=== PATIENT | male | born 1960 | race Caucasian/White ===

== ENCOUNTER → 2024-04-16 12:12 | Outpatient (BNVA) | payer MEDICARE, SELFPAY | PROVIDERS: Visit Provider Podiatrist Foot & Ankle Surgery | DX: M79.672 Pain in left foot (principal); M19.072 Primary osteoarthritis, left ankle and foot | CPT/HCPCS: 73630; 99204 ==

== ENCOUNTER 2024-05-12 10:05 | Day surgery (SDC) | payer MEDICARE, SELFPAY ==
--- OUTSIDE RECORDS SUMMARY | 2024-05-06 13:05 | XMS_ITS | Continuity of Care Document ---
Author Name Unknown Organization [facility] Address [facility] [address] [place] [address]- Care Team Providers Care Application Technician Name Role Phone Mitra Carroll Primary Care Physician Encounter 03/30/24 - 04/01/24 [facility] [address] [place] [address]- Encounter Diagnosis Degenerative arthritis of left foot(Discharge Diagnosis) - 03/30/24 Attending Physician: Mitra Hardy Allergies, Adverse Reactions, Alerts No Known Medication Allergies Assessment and Plan Extracted from: Title:Left foot pain Author:Mitra Hardy Date:03/30/24 Impression and Plan Diagnosis Degenerative arthritis of left foot ([id number] M19.072). Plan: referral we will call and tell them what he is being scheduled for keep ortho appt. Patient Instructions: Counseled: Patient, Regarding diagnosis, Regarding treatment, Regarding medications, Verbalized understanding. Orders Orders (Selected) Outpatient Orders Order [id number] office o/p est low meets or exceeds 20min (Charge): Quantity: 1, Degenerative arthritis of left foot. Medications cyclobenzaprine 10 mg oral tablet = 1 tab(s) ( 10 mg ), Oral, tid, PRN: for spasm, # 30 tab(s), 3 Refill(s), Type: Maintenance, Pharmacy: [facility] [id number], 1 tab(s) Oral tid,PRN:for spasm, 64.5, in, 01/21/24 10:14:00 CDT, Height Measured, 145.5, lb, 01/21/24 10:14:00 CDT, Weight Measured Start Date: 01/21/24 Status: Ordered ibuprofen 800 mg oral tablet = 1 tab(s) ( 800 mg ), Oral, tid, # 90 tab(s), 3 Refill(s), Type: Maintenance, Pharmacy: [facility], 1 tab(s) Oral tid, 64.5, in, 01/21/24 10:14:00 CDT, Height Measured, 145.5, lb, 01/21/24 10:14:00 CDT, Weight Measured Start Date: 01/21/24 Status: Ordered simvastatin 20 mg oral tablet = 1 tab(s), Oral, qpm, # 90 tab(s), 0 Refill(s), Type: Maintenance, Pharmacy: [facility], TAKE 1 TABLET BY MOUTH EVERY EVENING, 64.5, in, 01/21/24 10:14:00 CDT, Height Measured, 145.5, lb, 01/21/24 10:14:00 CDT, Weight Measured Start Date: 03/02/24 Status: Ordered tamsulosin 0.4 mg oral capsule = 1 cap(s) ( 0.4 mg ), Oral, daily, 0 Refill(s), Type: Maintenance Start Date: 11/20/23 Status: Ordered Tylenol with Codeine #3 oral tablet 1 tab(s), Oral, q6 hrs, PRN: for pain, # 60 tab(s), 0 Refill(s), Type: Maintenance, Pharmacy: [facility], 1 tab(s) Oral q6 hrs,PRN:for pain, 64.5, in, 01/21/24 10:14:00 CDT, Height Measured, 145.5, lb, 01/21/24 10:14:00 CDT, Weight Measured Start Date: 03/11/24 Status: Ordered Problem List Diagnosis Diagnosis Type Effective Dates Health Status Clinical Service Informant Degenerative arthritis of left foot Discharge Diagnosis 03/30/24 Non-Specified Vital Signs Most recent to oldest [Reference Range]: 1 Height Measured 64.5 in (03/30/24 9:08 AM) Weight Measured 141 lb (03/30/24 9:08 AM) Body Mass Index [18.5-25 kg/m2] 23.83 kg /m2 (03/30/24 9:08 AM) BSA 1.7 m2 (03/30/24 9:08 AM) Temperature Temporal [97.3-100 DegF] 98 DegF (03/30/24 9:08 AM) Blood Pressure [90-120/60-80 mmHg] 138/8 0mmHg *HI* (03/30/24 9:08 AM) Mean Arterial Pressure 99 mmHg (03/30/24 9:08 AM) Peripheral Pulse Rate [60-100 bpm] 49 bp m *<LLOW* (03/30/24 9:08 AM) SpO2 98 % (03/30/24 9:08 AM) Social History Social History Type Response Smoking Status Never (less than 100 in lifetime) entered on: 03/30/24 Sex Note * Danny Ramirez MD: SIGN Danny Ramirez MD: SIGN, SIGN, VERIFY Event Display: Family Planning Note Authored Date: [id number] Patient: Danny Alvarez Age: 63 years Sex: Male : 1960 Associated Diagnoses: Degenerative arthritis of left foot Author: Mitra Hardy Visit Information Date of Service: 03/30/2024 09:00 am Performing Location: [facility] Primary Care Provider (PCP): Mitra Hardy NPI# [id number] Referring Provider: No referring provider recorded for selected visit. Chief Complaint 03/30/2024 9:08 AM CDT Toe/foot issues. Patient had an MRI of the left foot that showed multiple foreign bodies. He was referred to a quality improvement specialist who told him he did not have any foreign bodies inthis toe and told to come back to PCP. History of Present Illness Danny is here with left foot pain He had an MRI which showed foreign bodies and degenerative change His foot hurts all the time and is affecting his walking Ortho told him over they phone they would not schedule and there are no foreign bodies as the MRI says His left foot 4th digit feel like it is dangling and detached when he is lying down Numb tingling other toes Review of Systems Constitutional: Negative except as documented in history of present illness. Eye: Negative. Ear/Nose/Mouth/Throat: Negative. Respiratory: Negative. Cardiovascular: Negative. Gastrointestinal: Negative. Genitourinary: Negative. Hematology/Lymphatics: Negative. Endocrine: Negative. Immunologic: Negative. Musculoskeletal: Negative except as documented in history of present illness. Integumentary: Negative. Neurologic: Negative. All other systems reviewed and negative Health Status Allergies: Allergic Reactions (Selected) No Known Medication Allergies Medications: (Selected) Prescriptions Prescribed Tylenol with Codeine #3 oral tablet: 1 tab(s), Oral, q6 hrs, PRN: for pain, # 60 tab(s), 0 Refill(s), Type: Maintenance, Pharmacy: [facility], 1 tab(s) Oral q6 hrs,PRN:for pain, 64.5, in, 01/21/24 10:14:00 CDT, Height Measured, 145.5, lb, 01/21/24 10:14:00 CDT, W... cyclobenzaprine 10 mg oral tablet: = 1 tab(s) ( 10 mg ), Oral, tid, PRN: for spasm, # 30 tab(s), 3 Refill(s), Type: Maintenance, Pharmacy: [facility], 1 tab(s) Oral tid,PRN:for spasm, 64.5, in, 01/21/24 10:14:00 CDT, Height Measured, 145.5, lb, 01/21/24 10:14:0... ibuprofen 800 mg oral tablet: = 1 tab(s) ( 800 mg ), Oral, tid, # 90 tab(s), 3 Refill(s), Type: Maintenance, Pharmacy: [facility], 1 tab(s) Oral tid, 64.5, in, 01/21/24 10:14:00 CDT, Height Measured, 145.5, lb, 01/21/24 10:14:00 CDT, Weight Measured simvastatin 20 mg oral tablet: = 1 tab(s), Oral, qpm, # 90 tab(s), 0 Refill(s), Type: Maintenance, Pharmacy: [facility], TAKE 1 TABLET BY MOUTH EVERY EVENING, 64.5, in, 01/21/24 10:14:00 CDT, Height Measured, 145.5, lb, 01/21/24 10:14:00 CDT, Weight Measured... Documented Medications Documented tamsulosin 0.4 mg oral capsule: = 1 cap(s) ( 0.4 mg ), Oral, daily, 0 Refill(s), Type: Maintenance, Medications *denotes recorded medication Tylenol with Codeine #3 oral tablet: 1 tab(s), Oral, q6 hrs, PRN: for pain, 60 tab(s), 0 Refill(s). cyclobenzaprine 10 mg oral tablet: 10 mg, 1 tab(s), Oral, tid, PRN: for spasm, 30 tab(s), 3 Refill(s). ibuprofen 800 mg oral tablet: 800 mg, 1 tab(s), Oral, tid, 90 tab(s), 3 Refill(s). simvastatin 20 mg oral tablet: 1 tab(s), Oral, qpm, 90 tab(s), 0 Refill(s). *tamsulosin 0.4 mg oral capsule: 0.4 mg, 1 cap(s), Oral, daily, 0 Refill(s). Histories Past Medical History: No active or resolved past medical history items have been selected or recorded. Family History: No family history items have been selected or recorded. Procedure history: Include procedure history No active procedure history items have been selected or recorded. Social History: No active social history items have been recorded. Physical Examination Vital Signs 03/30/2024 9:08 AM CDT Temperature Temporal 98 DegF Peripheral Pulse Rate 49 bpm <LLOW Systolic Blood Pressure 138 mmHg HI Diastolic Blood Pressure 80 mmHg Mean Arterial Pressure 99 mmHg BP Site Left arm SpO2 98 % Blood Pressure Method Manual Measurements from flowsheet : Measurements 03/30/2024 9:08 AM CDT Height Measured - Standard 64.5 in Weight Measured - Standard 141 lb BSA 1.7 m2 Body Mass Index 23.83 kg/m2 General: No acute distress. Behavior: Within normal limits. Skin: Within normal limits. Eye: Pupils are equal, round and reactive to light, Normal conjunctiva. HENT: Normocephalic, Tympanic membranes are clear, Normal hearing, Oral mucosa is moist, No pharyngeal erythema, No sinus tenderness. Neck: Supple. Respiratory: Lungs are clear to auscultation. Cardiovascular: Normal rate, Regular rhythm, No murmur, No gallop, Good pulses equal in all extremities. Gastrointestinal: Soft, Non-tender, Non-distended, Normal bowel sounds, No organomegaly. Genitourinary: No costovertebral angle tenderness. Lymphatics: No lymphadenopathy neck, axilla, groin. Musculoskeletal: Normal range of motion, left foot widespread pain with pressure applied. Integumentary: Warm, Dry. Neurologic: Alert, Normal sensory, Normal motor function, No focal deficits, Cranial Nerves II-XII are grossly intact, Normal deep tendon reflexes. Health Maintenance Recommendations Pending (in the next year) Due Alcohol Misuse Screen due 03/30/24 and every 1 years Annual Wellness Visit due 03/30/24 and every 1 years Colorectal Cancer Screening due 03/30/24 Variable frequency Depression Screen due 03/30/24 and every 1 years Fall Risk Screen due 03/30/24 and every 1 years Glaucoma Screen due 03/30/24 and every 1 years HIV Screen (if sexually active) due 03/30/24 and every 1 years Hepatitis C Screen due 03/30/24 One-time only IBT For Cardiovascular Disease due 03/30/24 and every 1 years Initial Preventative Physical Exam due 03/30/24 One-time only Prostate Cancer Screen due 03/30/24 and every 1 years Screen for STIs and HIBC to Prevent STIs due 03/30/24 and every 1 years Syphilis Screen (if sexually active) due 03/30/24 and every 1 years Tobacco Use Screen due 03/30/24 and every 1 years Near Due Influenza Vaccine near due 05/15/24 and every 1 years Satisfied (in the past 1 year) Satisfied Body Mass Index Check on 03/30/24. Body Mass Index Check on 01/21/24. Body Mass Index Check on 11/19/23. Body Mass Index Check on 10/21/23. High Blood Pressure Screen on 03/30/24. High Blood Pressure Screen on 01/21/24. High Blood Pressure Screen on 11/19/23. High Blood Pressure Screen on 10/21/23. Lipid Disorders Screen on 11/19/23. Lipid Disorders Screen on 11/19/23. Lipid Disorders Screen on 11/19/23. Lipid Disorders Screen on 11/19/23. Lipid Disorders Screen on 11/19/23. Impression and Plan Diagnosis Degenerative arthritis of left foot ([id number] M19.072). Plan: referral we will call and tell them what he is being scheduled for keep ortho appt. Patient Instructions: Counseled: Patient, Regarding diagnosis, Regarding treatment, Regarding medications, Verbalized understanding. Orders Orders (Selected) Outpatient Orders Order [id number] office o/p est low meets or exceeds 20min (Charge): Quantity: 1, Degenerative arthritis of left foot. Electronically Signed on 03/30/24 09:52 AM Mitra Hardy Electronically Signed on 03/30/24 09:53 AM Danny Ramirez MD Patient Care team information Care Team Personnel Name: Mitra Hardy Position: EMR Mid-Level Access (Supervised) Member Role: Primary Care Physician Address: Address: [address] P: F: [place] [id number]
--- OUTSIDE RECORDS SUMMARY | 2024-05-06 13:05 | XMS_ITS | Continuity of Care Document ---
Author Name Unknown Organization [facility] Address [facility] [address] [place] [address]- Care Team Providers Care Ward Nurse Name Role Phone Mitra Carroll Primary Care Physician Encounter 04/20/24 - 04/22/24 [facility] [address] [place] [address]- Encounter Diagnosis Pain in toe(Discharge Diagnosis) - 04/20/24 Acute osteomyelitis of left foot(Discharge Diagnosis) - 04/20/24 Acute pain of left foot(Discharge Diagnosis) - 04/20/24 Attending Physician: Mitra Hardy Allergies, Adverse Reactions, Alerts No Known Medication Allergies Assessment and Plan Extracted from: Title:Pre-surgery physical Author:Mitra Hardy Date:04/20/24 Impression and Plan Diagnosis Pain in toe (LZI51-[id number] M79.676). Pain in toe (ADZ52-KO M79.676). Acute osteomyelitis of left foot (JLC30-BF M86.172). Acute pain of left foot (HYZ57-VU M79.672). Plan: fax copy of EKG and physical to surgeon continue with surgery. Patient Instructions: Counseled: Patient, Regarding diagnosis, Regarding treatment, Regarding medications, Activity, Verbalized understanding. Orders Orders (Selected) Outpatient Orders Completed [id number] 12-lead electrocardiogram (Charge): Quantity: 1, Pain in toe Acute osteomyelitis of left foot Acute pain of left foot Order [id number] office o/p est low meets or exceeds 20min (Charge): Quantity: 1, Pain in toe Acute osteomyelitis of left foot Acute pain of left foot. Medications cyclobenzaprine 10 mg oral tablet = 1 tab(s) ( 10 mg ), Oral, tid, PRN: for spasm, # 30 tab(s), 3 Refill(s), Type: Maintenance, Pharmacy: [facility], 1 tab(s) Oral tid,PRN:for spasm, 64.5, in, 01/21/24 10:14:00 CDT, Height Measured, 145.5, lb, 01/21/24 10:14:00 CDT, Weight Measured Start Date: 01/21/24 Status: Ordered ibuprofen 800 mg oral tablet = 1 tab(s) ( 800 mg ), Oral, tid, # 90 tab(s), 3 Refill(s), Type: Maintenance, Pharmacy: [facility], 1 tab(s) Oral tid, 64.5, in, 01/21/24 10:14:00 CDT, Height Measured, 145.5, lb, 01/21/24 10:14:00 CDT, Weight Measured Start Date: 01/21/24 Status: Ordered simvastatin 20 mg oral tablet = 1 tab(s), Oral, qpm, # 90 tab(s), 0 Refill(s), Type: Maintenance, Pharmacy: [facility], TAKE 1 TABLET BY MOUTH EVERY EVENING, [...] Type: Maintenance, Pharmacy: [facility], 1 tab(s) Oral q6 hrs,PRN:for pain, 64.5, in, 01/21/24 10:14:00 CDT, Height Measured, 145.5, lb, 01/21/24 10:14:00 CDT, Weight Measured Start Date: 03/11/24 Status: Ordered Problem List Diagnosis Diagnosis Type Effective Dates Health Status Clinical Service Informant Pain in toe Discharge Diagnosis 04/20/24 Non-Specified Acute osteomyelitis of left foot Discharge Diagnosis 04/20/24 Non-Specified Acute pain of left foot Discharge Diagnosis 04/20/24 Non-Specified Results Laboratory List Name Date CBC With Platelet And Differential* (Pat hGroup) 04/20/24 Comprehensive Metabolic Panel (CMP)* (Pa thGroup) 04/20/24 Most recent to oldest [Reference Range]: 1 Immature Granulocyte Automated [0.0-1.0 %] 0.2 % 1 (04/20/24 12:50 PM) eGFR by Creatinine [>59 mL/min/1.73m^2] 81 mL/min/1.73m^2 2 (04/20/24 12:50 PM) Creatinine Level [0.70-1.30 mg/dL] 1.02 mg/dL 3 (04/20/24 12:50 PM) Albumin Level [3.5-5.3 g/dL] 4.2 g/dL 4 (04/20/24 12:50 PM) Alkaline Phosphatase [40-129 IU/L] 75 IU /L 5 (04/20/24 12:50 PM) Basophil Auto [0.0-1.5 %] 0.9 % 6 (04/20/24 12:50 PM) Bilirubin Total [<0.2-1.2 mg/dL] 0.4 mg/ dL 7 (04/20/24 12:50 PM) BUN [8-23 mg/dL] 15 mg/dL 8 (04/20/24 12:50 PM) Calcium [8.6-10.4 mg/dL] 9.1 mg/dL 9 (04/20/24 12:50 PM) Chloride Level [97-108 mmol/L] 105 mmol/ L 10 (04/20/24 12:50 PM) CO2 Level [22-32 mmol/L] 22 mmol/L 11 (04/20/24 12:50 PM) Eosinophil Auto [0.0-8.0 %] 2.3 % 12 (04/20/24 12:50 PM) Glucose Level [65-99 mg/dL] 106 mg/dL 13 *HI* (04/20/24 12:50 PM) Hct [39.0-51.0 %] 41.7 % 14 (04/20/24 12:50 PM) Hgb [13.1-17.5 gm/dL] 13.7 gm/dL 15 (04/20/24 12:50 PM) Lymphocyte Auto [14.0-48.0 %] 38.2 % 16 (04/20/24 12:50 PM) MCH [26.9-35.0 pg] 30.4 pg 17 (04/20/24 12:50 PM) MCHC [30.4-34.8 g/dL] 32.9 g/dL 18 (04/20/24 12:50 PM) MCV [79.0-99.0 fL] 92.7 fL 19 (04/20/24 12:50 PM) Monocyte Auto [4.0-13.0 %] 7.4 % 20 (04/20/24 12:50 PM) Neutrophil Auto [41.0-77.0 %] 51.0 % 21 (04/20/24 12:50 PM) Platelet [137-397 K/CUMM] 288 K/CUMM 22 (04/20/24 12:50 PM) Potassium Level [3.5-5.3 mmol/L] 4.4 mmo l/L 23 (04/20/24 12:50 PM) RBC [4.20-5.70 M/mm3] 4.50 M/mm3 24 (04/20/24 12:50 PM) RDW [38.2-53.0 fL] 46.6 fL 25 (04/20/24 12:50 PM) Sodium Level [135-145 mmol/L] 138 mmol/L 26 (04/20/24 12:50 PM) Protein Total [6.0-8.3 g/dL] 6.8 g/dL 27 (04/20/24 12:50 PM) WBC [3.8-11.5 K/uL] 8.6 K/uL 28 (04/20/24 12:50 PM) ALT/SGPT [<5-55 IU/L] 16 IU/L 29 (04/20/24 12:50 PM) AST/SGOT [<5-46 IU/L] 15 IU/L 30 (04/20/24 12:50 PM) A/G Ratio [1.1-2.5 mg/dL] 1.6 mg/dL 31 (04/20/24 12:50 PM) 1Result Comment: Test performed by [employer] [address] , [address], [place] [address] Emanuel Ivory MD, [facility] CLIA: [id number] 2Result Comment: Test performed by [employer] , [address], [place] [address] Emanuel Ivory MD, [facility] CLIA: [id number] 3Result Comment: Test performed by [employer] , [address], [place] [address] Emanuel Ivory MD, [facility] CLIA: [id number] 4Result Comment: Test performed by [employer] , [address], [place] [address] Emanuel Ivory MD, [facility] CLIA: [id number] 5Result Comment: [facility] , [address], [place] [address] Emanuel Ivory MD, [facility] CLIA: [id number] 6Result Comment: Test performed by [employer] , [address], [place] [address] Emanuel Ivory MD, [facility] CLIA: [id number] 7Result Comment: Test performed by [employer] , [address], [place] [address] Emanuel Ivory MD, [facility] CLIA: [id number] 8Result Comment: Test performed by [employer] , [address], [place] [address] Emanuel Ivory MD, [facility] CLIA: [id number] 9Result Comment: Test performed by [facility] , [address], [place] [address] Emanuel Ivory MD, [facility] CLIA: [id number] 10Result Comment: Test performed by [facility] [employer] , [address], [place] [address] Emanuel Ivory MD, [facility] CLIA: [id number] 11Result Comment: Test performed by [address] , [address], [place] [address] Emanuel Ivory MD, [facility] CLIA: [id number] 12Result Comment: Test performed by [facility] [employer] , [address], [place] [address] Emanuel Ivory MD, [facility] CLIA: [id number] 13Result Comment: Test performed by [employer] , [address], [place] [address] Emanuel Ivory MD, [facility] CLIA: [id number] 14Result Comment: Test performed by [address] , [address], [place] [address] Emanuel Ivory MD, [facility] CLIA: [id number] 15Result Comment: Test performed by [address] , [address], [place] [address] Emanuel Ivory MD, [facility] CLIA: [id number] 16Result Comment: Test performed by [address] , [address], [place] [address] Emanuel Ivory MD, [facility] CLIA: [id number] 17Result Comment: Test performed by [facility] [employer] , [address], [place] [address] Emanuel Ivory MD, [facility] CLIA: [id number] 18Result Comment: Test performed by [facility] , [address], [place] [address] Emanuel Ivory MD, [facility] CLIA: [id number] 19Result Comment: Test performed by [facility] [employer] , [address], [place] [address] Emanuel Ivory MD, [facility] CLIA: [id number] 20Result Comment: Test performed by [address] , [address], [place] [address] Emanuel Ivory MD, [facility] CLIA: [id number] 21Result Comment: Test performed by [address] , [address], [place] [address] Emanuel Ivory MD, [facility] CLIA: [id number] 22Result Comment: Test performed by [facility] [employer] , [address], [place] [address] Emanuel Ivory MD, [facility] CLIA: [id number] 23Result Comment: Test performed by [address] , [address], [place] [address] Emanuel Ivory MD, [facility] CLIA: [id number] 24Result Comment: Test performed by [address] , [address], [place] [address] Emanuel Ivory MD, [facility] CLIA: [id number] 25Result Comment: Test performed by [address] , [address], [place] [address] Emanuel Ivory MD, [facility] CLIA: [id number] 26Result Comment: Test performed by [address] , [address], [place] [address] Emanuel Ivory MD, [facility] CLIA: [id number] 27Result Comment: Test performed by [address] , [address], [place] [address] Emanuel Ivory MD, [facility] CLIA: [id number] 28Result Comment: Test performed by [facility] , [address], [place] [address] Emanuel Ivory MD, [facility] CLIA: [id number] 29Result Comment: Test performed by [address] , [address], [place] [address] Emanuel Ivory MD, [facility] CLIA: [id number] 30Result Comment: Test performed by [address] , [address], [place] [address] Emanuel Ivory MD, [facility] CLIA: [id number] 31Result Comment: Test performed by [employer] [employer] [facility] , [address], [place] [address] Emanuel Ivory MD, [facility] CLIA: [id number] Vital Signs Most recent to oldest [Reference Range]: 1 Height Measured 64.5 in (04/20/24 11:48 AM) Weight Measured 141 lb (04/20/24 11:48 AM) Body Mass Index [18.5-25 kg/m2] 23.83 kg /m2 (04/20/24 11:48 AM) BSA 1.7 m2 (04/20/24 11:48 AM) Temperature Temporal [97.3-100 DegF] 97. 7 DegF (04/20/24 11:48 AM) Blood Pressure [90-120/60-80 mmHg] 124/7 0mmHg *HI* (04/20/24 11:48 AM) Mean Arterial Pressure 88 mmHg (04/20/24 11:48 AM) Peripheral Pulse Rate [60-100 bpm] 76 bp m (04/20/24 11:48 AM) SpO2 [95 %] 97 % (04/20/24 11:48 AM) Social History Social History Type Response Smoking Status Never (less than 100 in lifetime) entered on: 03/30/24 Sex US Heart * Jake, Polina: PERFORM Event Display: Echocardiogram Report Authored Date: Note * Danny Ramirez MD: SIGN Danny Ramirez MD: SIGN, SIGN, VERIFY Event Display: Family Planning Note Authored Date: Patient: Danny Alvarez Age: 63 years Sex: Male : 1960 Associated Diagnoses: Pain in toe; Acute osteomyelitis of left foot; Acute pain of left foot Author: Mitra Hardy Visit Information Date of Service: 04/20/2024 11:07 am Performing Location: [facility] Primary Care Provider (PCP): Mitra Hardy NPI# [id number] Referring Provider: No referring provider recorded for selected visit. Chief Complaint 04/20/2024 11:48 AM CDT surgeical clearance. History of Present Illness Danny is here for surgical clearance He is having his foot worked on due to a foreign body showing up on xray He has had surgery before and never had any issues He is feeling well now. EKG was normal Review of Systems Constitutional Eye: Negative. Ear/Nose/Mouth/Throat: Negative. Respiratory: Negative. Cardiovascular: Negative. Gastrointestinal: Negative. Genitourinary: Negative. Hematology/Lymphatics: Negative. Endocrine: Negative. Immunologic: Negative. Musculoskeletal: Negative. Integumentary: Negative. Neurologic: Negative. All other systems reviewed and negative Health Status Allergies: Allergic Reactions (Selected) No Known Medication Allergies Medications: (Selected) Prescriptions Prescribed Tylenol with Codeine #3 oral tablet: 1 tab(s), Oral, q6 hrs, PRN: for pain, # 60 tab(s), 0 Refill(s), Type: Maintenance, Pharmacy: [facility], 1 tab(s) Oral q6 hrs,PRN:for pain, 64.5, in, 01/21/24 10:14:00 CDT, Height Measured, 145.5, lb, 01/21/24 10:14:00 CDT, W... cyclobenzaprine 10 mg oral tablet: = 1 tab(s) ( 10 mg ), Oral, tid, PRN: for spasm, # 30 tab(s), 3 Refill(s), Type: Maintenance, Pharmacy: [facility], 1 tab(s) Oral tid,PRN:for spasm, 64.5, in, 01/21/24 10:14:00 CDT, Height Measured, 145.5, lb, 01/21/24 10:14:0... ibuprofen 800 mg oral tablet: = 1 tab(s) ( 800 mg ), Oral, tid, # 90 tab(s), 3 Refill(s), Type: Maintenance, Pharmacy: [facility], 1 tab(s) Oral tid, 64.5, in, 01/21/24 10:14:00 CDT, Height Measured, 145.5, lb, 01/21/24 10:14:00 CDT, Weight Measured simvastatin 20 mg oral tablet: = 1 tab(s), Oral, qpm, # 90 tab(s), 0 Refill(s), Type: Maintenance, Pharmacy: [facility], TAKE 1 TABLET BY MOUTH EVERY EVENING, [...] have been selected or recorded. Social History: Tobacco Assessment: Denies Tobacco Use Never (less than 100 in lifetime) Physical Examination Vital Signs 04/20/2024 11:48 AM CDT Temperature Temporal 97.7 DegF Peripheral Pulse Rate 76 bpm Systolic Blood Pressure 124 mmHg HI Diastolic Blood Pressure 70 mmHg Mean Arterial Pressure 88 mmHg SpO2 97 % Measurements from flowsheet : Measurements 04/20/2024 11:48 AM CDT Height Measured - Standard 64.5 [...] neck, axilla, groin. Musculoskeletal: Normal range of motion. Integumentary: Warm, Dry. Neurologic: Alert, Normal sensory, Normal motor function, No focal deficits, Cranial Nerves II-XII are grossly intact, Normal deep tendon reflexes, left foot pain. Health Maintenance Recommendations Pending (in the next year) Due Alcohol Misuse Screen due 04/20/24 and every 1 years Annual Wellness Visit due 04/20/24 and every 1 years Colorectal Cancer Screening due 04/20/24 Variable frequency Depression Screen due 04/20/24 and every 1 years Fall Risk Screen due 04/20/24 and every 1 years Glaucoma Screen due 04/20/24 and every 1 years HIV Screen (if sexually active) due 04/20/24 and every 1 years Hepatitis C Screen due 04/20/24 One-time only IBT For Cardiovascular Disease due 04/20/24 and every 1 years Initial Preventative Physical Exam due 04/20/24 One-time only Prostate Cancer Screen due 04/20/24 and every 1 years Screen for STIs and HIBC to Prevent STIs due 04/20/24 and every 1 years Syphilis Screen (if sexually active) due 04/20/24 and every 1 years Near Due Influenza Vaccine near due 05/15/24 and every 1 years Due In Future Tobacco Use Screen not due until 03/30/25 and every 1 years Satisfied (in the past 1 year) Satisfied Body Mass Index Check on 04/20/24. Body Mass Index Check on 03/30/24. Body Mass Index Check on 01/21/24. Body Mass Index Check on 11/19/23. Body Mass Index Check on 10/21/23. High Blood Pressure Screen on 04/20/24. High Blood Pressure Screen on 03/30/24. High Blood Pressure Screen on 01/21/24. High Blood Pressure Screen on 11/19/23. High Blood Pressure Screen on 10/21/23. Lipid Disorders Screen on 11/19/23. Lipid Disorders Screen on 11/19/23. Lipid Disorders Screen on 11/19/23. Lipid Disorders Screen on 11/19/23. Lipid Disorders Screen on 11/19/23. Tobacco Use Screen on 03/30/24. Review / Management ECG interpretation: Within normal limits. Impression and Plan Diagnosis Pain in toe (DCF27-TP M79.676). Pain in toe (QBC22-US M79.676). Acute osteomyelitis of left foot (PKM53-DK M86.172). Acute pain of left foot (HVM66-GQ M79.672). Plan: fax copy of EKG and physical to surgeon continue with surgery. Patient Instructions: Counseled: Patient, Regarding diagnosis, Regarding treatment, Regarding medications, Activity, Verbalized understanding. Orders Orders (Selected) Outpatient Orders Completed [id number] 12-lead electrocardiogram (Charge): Quantity: 1, Pain in toe Acute osteomyelitis of left foot Acute pain of left foot Order [id number] office o/p est low meets or exceeds 20min (Charge): Quantity: 1, Pain in toe Acute osteomyelitis of left foot Acute pain of left foot. Electronically Signed on 04/20/24 12:11 PM Mitra Hardy Electronically Signed on 04/20/24 02:23 PM Danny Ramirez MD Patient Care team information Care Team Personnel Name: Mitra Hardy Position: [facility] Mid-Level Access (Supervised) Member Role: Primary Care Physician Address: Address: [address] P: F: [place] [id number]
--- OUTSIDE RECORDS SUMMARY | 2024-05-06 13:05 | XMS_ITS | Continuity of Care Document ---
Author Name Unknown Organization [facility] Address [facility] [address] 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 [place] [address]- Encounter Diagnosis Acute foot pain(Discharge Diagnosis) - 01/21/24 Acute osteomyelitis of foot(Discharge Diagnosis) - 01/21/24 Injury of foot including toes(Discharge Diagnosis) - 01/21/24 Attending Physician: Mitra Hardy Allergies, Adverse Reactions, Alerts No Known Medication Allergies Assessment and Plan Extracted from: Title:Foot pain Author:Mitra Hardy Date: 01/21/24 Impression and Plan Diagnosis Acute foot pain (SSO36-TH M79.673). Acute osteomyelitis of foot (ARH34-ND M86.179). Injury of foot including toes (VWT99-AR S99.929A). Plan: await MRI to rule out osteomylitis. Patient Instructions: Counseled: Patient, Regarding diagnosis, Regarding treatment, Regarding medications, Verbalized understanding. Orders Orders (Selected) Outpatient Orders Order [id number] office o/p est low meets or exceeds 20min (Charge): Quantity: 1, Acute foot pain Acute osteomyelitis of foot Injury of foot including toes MRI Foot w/o Contrast Left (Request): Instructions: [facility], Acute foot pain Acute osteomyelitis of foot Injury of foot including toes Prescriptions Prescribed Tylenol with Codeine #3 oral tablet: 1 tab(s), Oral, q6 hrs, PRN: for pain, # 60 tab(s), 0 Refill(s), Type: Maintenance, Pharmacy: [id number], 1 tab(s) Oral q6 hrs,PRN:for pain, 64.5, in, 01/21/24 10:14:00 CDT, Height Measured, 145.5, lb, 01/21/24 10:14:00 CDT, W... cephalexin 500 mg oral capsule: = 1 cap(s) ( 500 mg ), Oral, tid, x 10 day(s), # 30 cap(s), 0 Refill(s), Type: Acute, Pharmacy: [facility], 1 cap(s) Oral tid,x10 day(s), 64.5, in, 01/21/24 10:14:00 CDT, Height Measured, 145.5, lb, 01/21/24 10:14:00 CDT, Weig... cyclobenzaprine 10 mg oral tablet: = 1 tab(s) ( 10 mg ), Oral, tid, PRN: for spasm, # 30 tab(s), 3 Refill(s), Type: Maintenance, Pharmacy: [facility], 1 tab(s) Oral tid,PRN:for spasm, 64.5, in, 01/21/24 10:14:00 CDT, Height Measured, 145.5, lb, 01/21/24 10:14:0... ibuprofen 800 mg oral tablet: = 1 tab(s) ( 800 mg ), Oral, tid, # 90 tab(s), 3 Refill(s), Type: Maintenance, Pharmacy: [facility], 1 tab(s) Oral tid, 64.5, in, 01/21/24 10:14:00 CDT, Height Measured, 145.5, lb, 01/21/24 10:14:00 CDT, Weight Measured predniSONE 10 mg oral tablet: See Instructions, Instructions: 3x3 2x3 1x3, # 18 EA, 0 Refill(s), Type: Maintenance, Pharmacy: [facility] [id number], 3x3 2x3 1x3, 64.5, in, 01/21/24 10:14:00 CDT, Height Measured, 145.5, lb, 01/21/24 10:14:00 CDT, Weight Measured. Medications cephalexin 500 mg oral capsule = 1 cap(s) ( 500 mg ), Oral, tid, x 10 day(s), # 30 cap(s), 0 Refill(s), Type: Acute, Pharmacy: [facility], 1 cap(s) Oral tid,x10 day(s), 64.5, in, 01/21/24 10:14:00 CDT, Height Measured, 145.5, lb, 01/21/24 10:14:00 CDT, Weight Measured Start Date: 01/21/24 Stop Date: 01/31/24 Status: Ordered cyclobenzaprine 10 mg oral tablet = 1 tab(s) ( 10 mg ), Oral, tid, PRN: for spasm, # 30 tab(s), 3 Refill(s), Type: Maintenance, Pharmacy: [facility], 1 tab(s) Oral tid,PRN:for spasm, 64.5, in, 01/21/24 10:14:00 CDT, Height Measured, 145.5, lb, 01/21/24 10:14:00 CDT, Weight Measured Start Date: 01/21/24 Status: Ordered cyclobenzaprine 10 mg oral tablet = 1 tab(s), Oral, tid, PRN: NEEDED FOR SPASM, # 40 tab(s), 0 Refill(s), Type: Maintenance, Pharmacy: [facility], TAKE 1 TABLET BY MOUTH THREE TIMES DAILY FOR 14 DAYS NEEDED FOR SPASM, 64.5, in, 11/19/23 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, Height Measured, 144, lb, 11/19/23 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, Weight Measured Start Date: 12/05/23 Stop Date: 12/19/23 Status: Ordered ibuprofen 800 mg oral tablet = 1 tab(s) ( 800 mg ), Oral, tid, # 90 tab(s), 3 Refill(s), Type: Maintenance, Pharmacy: [facility], 1 tab(s) Oral tid, 64.5, in, 01/21/24 10:14:00 CDT, Height Measured, 145.5, lb, 01/21/24 10:14:00 CDT, Weight Measured Start Date: 01/21/24 Status: Ordered ibuprofen 800 mg oral tablet = 1 tab(s), Oral, tid, # 90 tab(s), 0 Refill(s), Type: Maintenance, Pharmacy: [facility], TAKE 1 TABLET BY MOUTH THREE TIMES DAILY, 64.5, in, 11/19/23 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, Height Measured, 144, lb, 11/19/23 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, Weight Measured Start Date: 12/05/23 Status: Ordered predniSONE 10 mg oral tablet See Instructions, Instructions: 3x3 2x3 1x3, # 18 EA, 0 Refill(s), Type: Maintenance, Pharmacy: [facility], 3x3 2x3 1x3, 64.5, in, 01/21/24 10:14:00 CDT, Height Measured, 145.5, lb, 01/21/24 10:14:00 CDT, Weight Measured Start Date: 01/21/24 Status: Ordered simvastatin 20 mg oral tablet ( 20 mg ), Oral, qpm, # 90 tab(s), 0 Refill(s), Type: Maintenance, Pharmacy: [facility], 20 mg Oral qpm, 64.5, in, 11/19/23 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, Height Measured, 144, lb, 11/19/23 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, Weight Measured Start Date: 11/21/23 Status: Ordered tamsulosin 0.4 mg oral capsule = 1 cap(s) ( 0.4 mg ), Oral, daily, 0 Refill(s), Type: Maintenance Start Date: 11/20/23 Status: Ordered Tylenol with Codeine #3 oral tablet 1 tab(s), Oral, q6 hrs, PRN: for pain, # 60 tab(s), 0 Refill(s), Type: Maintenance, Pharmacy: [facility], 1 tab(s) Oral q6 hrs,PRN:for pain, 64.5, in, 01/21/24 10:14:00 CDT, Height Measured, 145.5, lb, 01/21/24 10:14:00 CDT, Weight Measured Start Date: 01/21/24 Status: Ordered Problem List Diagnosis Diagnosis Type Effective Dates Health Status Clinical Service Informant Acute foot pain Discharge Diagnosis 01/21/24 Non-Specified Acute osteomyelitis of foot Discharge Diagnosis 01/21/24 Non-Specified Injury of foot including toes Discharge Diagnosis 01/21/24 Non-Specified Vital Signs Most recent to oldest [Reference Range]: 1 Height Measured 64.5 in (01/21/24 10:14 AM) Weight Measured 145.5 lb (01/21/24 10:14 AM) Body Mass Index [18.5-25 kg/m2] 24.59 kg /m2 (01/21/24 10:14 AM) BSA 1.73 m2 (01/21/24 10:14 AM) Temperature Temporal [97.3-100 DegF] 97. 5 DegF (01/21/24 10:14 AM) Blood Pressure [90-120/60-80 mmHg] 132/6 8mmHg *HI* (01/21/24 10:14 AM) Mean Arterial Pressure 89 mmHg (01/21/24 10:14 AM) Peripheral Pulse Rate [60-100 bpm] 68 bp m (01/21/24 10:14 AM) Oxygen Saturation [94-100 %] 98 % (01/21/24 10:14 AM) Note * Danny Ramirez MD: SIGN Danny Ramirez MD: SIGN, SIGN, VERIFY Event Display: Family Planning Note Authored Date: [id number] Patient: Danny Alvarez Age: 63 years Sex: Male : 1960 Associated Diagnoses: Acute foot pain; Acute osteomyelitis of foot; Injury of foot including toes Author: Mitra Hardy Visit Information Date of Service: 01/21/2024 10:05 am Performing Location: [facility] Primary Care Provider (PCP): Mitra Hardy NPI# [id number] Referring Provider: No referring provider recorded for selected visit. Chief Complaint 01/21/2024 10:14 AM CDT Left toe/foot pain. He states in the late 70's he had a naill go straight through that toe and had to be on Tobramycin which he states ate the entire joint away and I had to have surgery to stiffen that toe History of Present Illness Danny is here because years ago he had a nail go through his foot He had to be on IV antibiotics and had to have surgery for what sounds like osteomyelitis Over the last few weeks that area has been very painful and brings him to his knees even with pain it is so severe No new injury Review of Systems Constitutional: Negative except as [...] Type: Maintenance, Pharmacy: [facility], 1 tab(s) Oral q6 hrs,PRN:for pain, 64.5, in, 01/21/24 10:14:00 CDT, Height Measured, 145.5, lb, 01/21/24 10:14:00 CDT, W... cephalexin 500 mg oral capsule: = 1 cap(s) ( 500 mg ), Oral, tid, x 10 day(s), # 30 cap(s), 0 Refill(s), Type: Acute, Pharmacy: [facility], 1 cap(s) Oral tid,x10 day(s), 64.5, in, 01/21/24 10:14:00 CDT, Height Measured, 145.5, lb, 01/21/24 10:14:00 CDT, Weig... cyclobenzaprine 10 mg oral tablet: = 1 tab(s) ( 10 mg ), Oral, tid, PRN: for spasm, # 30 tab(s), 3 Refill(s), Type: Maintenance, Pharmacy: [facility] [id number], 1 tab(s) Oral tid,PRN:for spasm, 64.5, in, 01/21/24 10:14:00 CDT, Height Measured, 145.5, lb, 01/21/24 10:14:0... 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 cephalexin 500 mg oral capsule: 500 mg, 1 cap(s), Oral, tid, for 10 day(s), 30 cap(s), 0 Refill(s). cyclobenzaprine 10 mg oral tablet: 1 tab(s), Oral, tid, for 14 day(s), PRN: NEEDED FOR SPASM, 40tab(s), 0 Refill(s). cyclobenzaprine 10 mg oral tablet: 10 mg, 1 tab(s), Oral, tid, PRN: for spasm, 30 tab(s), 3 Refill(s). ibuprofen 800 mg oral tablet: 1 tab(s), Oral, tid, 90 tab(s), 0 Refill(s). ibuprofen 800 mg oral tablet: 800 mg, 1 tab(s), Oral, tid, 90 tab(s), 3 Refill(s). predniSONE 10 mg oral tablet: See Instructions, 3x3 2x3 1x3, 18 EA, 0 Refill(s). simvastatin 20 mg oral tablet: 20 mg, Oral, qpm, 90 tab(s), 0 Refill(s). *tamsulosin [...] have been recorded. Physical Examination Vital Signs 01/21/2024 10:14 AM CDT Temperature Temporal 97.5 DegF Peripheral Pulse Rate 68 bpm Systolic Blood Pressure 132 mmHg HI Diastolic Blood Pressure 68 mmHg Mean Arterial Pressure 89 mmHg BP Site Right arm Oxygen Saturation 98 % Blood Pressure Method Manual Measurements from flowsheet : Measurements 01/21/2024 10:14 AM CDT Height Measured - Standard 64.5 in Weight Measured - Standard 145.5 lb BSA 1.73 m2 Body Mass Index 24.59 kg/m2 General: No acute distress. Behavior: Within [...] Lymphatics: No lymphadenopathy neck, axilla, groin. Musculoskeletal: left foot above 5th digit with tendereness also on bottom of foot. Integumentary: Warm, Dry. Neurologic: Alert, Normal sensory, Normal motor function, No focal deficits, Cranial Nerves II-XII are grossly intact, Normal deep tendon reflexes. Health Maintenance Recommendations Pending (in the next year) Due Alcohol Misuse Screen due 01/21/24 and every 1 years Annual Wellness Visit due 01/21/24 and every 1 years Colorectal Cancer Screening due 01/21/24 Variable frequency Depression Screen due 01/21/24 and every 1 years Fall Risk Screen due 01/21/24 and every 1 years Glaucoma Screen due 01/21/24 and every 1 years HIV Screen (if sexually active) due 01/21/24 and every 1 years Hepatitis C Screen due 01/21/24 One-time only IBT For Cardiovascular Disease due 01/21/24 and every 1 years Initial Preventative Physical Exam due 01/21/24 One-time only Prostate Cancer Screen due 01/21/24 and every 1 years Screen for STIs and HIBC to Prevent STIs due 01/21/24 and every 1 years Syphilis Screen (if sexually active) due 01/21/24 and every 1 years Tobacco Use Screen due 01/21/24 and every 1 years Due In Future Influenza Vaccine not due until 05/15/24 and every 1 years Satisfied (in the past 1 year) Satisfied Body Mass Index Check on 01/21/24. Body Mass Index Check on 11/19/23. Body Mass Index Check on 10/21/23. High Blood Pressure Screen on 01/21/24. High Blood Pressure Screen on 11/19/23. High Blood Pressure Screen on 10/21/23. Lipid Disorders Screen on 11/19/23. Lipid Disorders Screen on 11/19/23. Lipid Disorders Screen on 11/19/23. Lipid Disorders Screen on 11/19/23. Lipid Disorders Screen on 11/19/23. Impression and Plan Diagnosis Acute foot pain (NJB07-TI M79.673). Acute osteomyelitis of foot (KBV34-EC M86.179). Injury of foot including toes (TJB96-PH S99.929A). Plan: await MRI to rule out osteomylitis. Patient Instructions: Counseled: Patient, Regarding diagnosis, Regarding treatment, Regarding medications, Verbalized understanding. Orders Orders (Selected) Outpatient Orders Order [id number] office o/p est low meets or exceeds 20min (Charge): Quantity: 1, Acute foot pain Acute osteomyelitis of foot Injury of foot including toes MRI Foot w/o Contrast Left (Request): Instructions: [facility], Acute foot pain Acute osteomyelitis offoot Injury of foot including toes Prescriptions Prescribed Tylenol with Codeine #3 oral tablet: 1 tab(s), Oral, q6 hrs, PRN: for pain, # 60 tab(s), 0 Refill(s), Type: Maintenance, Pharmacy: [facility], 1 tab(s) Oral q6 hrs,PRN:for pain, 64.5, in, 01/21/24 10:14:00 CDT, Height Measured, 145.5, lb, 01/21/24 10:14:00 CDT, W... cephalexin 500 mg oral capsule: = 1 cap(s) ( 500 mg ), Oral, tid, x 10 day(s), # 30 cap(s), 0 Refill(s), Type: Acute, Pharmacy: [facility], 1 cap(s) Oral tid,x10 day(s), 64.5, in, 01/21/24 10:14:00 CDT, Height Measured, 145.5, lb, 01/21/24 10:14:00 CDT, Weig... cyclobenzaprine 10 mg oral tablet: = 1 tab(s) ( 10 mg ), Oral, tid, PRN: for spasm, # 30 tab(s), 3 Refill(s), Type: Maintenance, Pharmacy: [facility], 1 tab(s) Oral tid,PRN:for spasm, 64.5, in, 01/21/24 10:14:00 CDT, Height Measured, 145.5, lb, 01/21/24 10:14:0... ibuprofen 800 mg oral tablet: = 1 tab(s) ( 800 mg ), Oral, tid, # 90 tab(s), 3 Refill(s), Type: Maintenance, Pharmacy: [facility], 1 tab(s) Oral tid, 64.5, in, 01/21/24 10:14:00 CDT, Height Measured, 145.5, lb, 01/21/24 10:14:00 CDT, Weight Measured predniSONE 10 mg oral tablet: See Instructions, Instructions: 3x3 2x3 1x3, # 18 EA, 0 Refill(s), Type: Maintenance, Pharmacy: [email or web address], 3x3 2x3 1x3, 64.5, in, 01/21/24 10:14:00 CDT, Height Measured, 145.5, lb, 01/21/24 10:14:00 CDT, Weight Measured. Electronically Signed on 01/21/24 02:40 PM Mitra Hardy Electronically Signed on 01/21/24 04:28 PM Danny Ramirez MD Patient Care team information Care Team Personnel Name: Mitra Hardy Position: EMR Mid-Level Access (Supervised) Member Role: Primary Care Physician Address: Address: [facility] [address] P: F: [place] [id number]
--- OUTSIDE RECORDS SUMMARY | 2024-05-06 13:05 | XMS_ITS ---
Author Name Unknown Organization [facility] Allergies, Adverse Reactions and Alerts Date Isallergic Allergen Type 02/24/2023 09:40:00 1 NO KNOWN ALLERGIES Al lergen ASSESSMENT No information CHIEF COMPLAINT No information MEDICATIONS No information OBJECTIVE DATA No information PHYSICAL EXAMINATION No information TREATMENT PLAN No information PROBLEMS No information RESULTS No information REVIEW OF SYSTEMS No information SUBJECTIVE DATA No information VITAL SIGNS No information
--- OUTSIDE RECORDS SUMMARY | 2024-05-06 13:05 | XMS_ITS | Continuity of Care Document ---
Author Name Unknown Organization [facility] Address [facility] [address] 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 [place] [address]- Allergies, Adverse Reactions, Alerts No Known Medication Allergies Medications cyclobenzaprine 10 mg oral tablet = 1 tab(s) ( 10 mg ), Oral, tid, PRN: for spasm, # 30 tab(s), 3 Refill(s), Type: Maintenance, Pharmacy: [facility], 1 tab(s) Oral tid,PRN:for spasm, 64.5, in, 01/21/24 10:14:00 CDT, Height Measured, 145.5, lb, 01/21/24 10:14:00 CDT, Weight Measured Start Date: 01/21/24 Status: Ordered ibuprofen 800 mg oral tablet = 1 tab(s) ( 800 mg ), Oral, tid, # 90 tab(s), 3 Refill(s), Type: Maintenance, Pharmacy: [email or web address], 1 tab(s) Oral tid, 64.5, in, 01/21/24 10:14:00 CDT, Height Measured, 145.5, lb, 01/21/24 10:14:00 CDT, Weight Measured Start Date: 01/21/24 Status: Ordered simvastatin 20 mg oral tablet = 1 tab(s), Oral, qpm, # 90 tab(s), 0 Refill(s), Type: Maintenance, Pharmacy: [facility] [id number], TAKE 1 TABLET BY MOUTH EVERY EVENING, [...] 60 tab(s), 0 Refill(s), Type: Maintenance, Pharmacy: [facility], 1 tab(s) Oral q6 hrs,PRN:for pain, 64.5, in, 01/21/24 10:14:00 CDT, Height Measured, 145.5, lb, 01/21/24 10:14:00 CDT, Weight Measured Start Date: 03/11/24 Status: Ordered Social History Social History Type Response Smoking Status Never (less than 100 in lifetime) entered on: 03/30/24 Sex Patient Care team information Care Team Personnel Name: Adiel Clements Position: EMR Mid-Level Access (Supervised) Member Role: Primary Care Physician Address: Address: [facility] P: F: [place], [place] [address]
--- OUTSIDE RECORDS SUMMARY | 2024-05-06 13:05 | XMS_ITS ---
Author Name Unknown Organization Unknown ALLERGIES AND ADVERSE REACTIONS No information ASSESSMENT No information CHIEF COMPLAINT No information MEDICATIONS No information OBJECTIVE DATA No information PHYSICAL EXAMINATION No information TREATMENT PLAN Planned Care Start Date Provider Encounter for Check-up [id number] [facility] PROBLEMS No information RESULTS No information REVIEW OF SYSTEMS No information SUBJECTIVE DATA No information VITAL SIGNS No information
[2024-05-12] VITALS (7 sets, daily range): BP systolic 105–129; BP diastolic 61–74; PULSE 53–66; RESP 16; TEMP 36.1–36.3; O2SAT 97–100; BMI 24.9
[2024-05-12] MEDS: acetaminophen 1,000 MG/100 ML PIGGYBACK 400 MG IV (10:26)
[2024-05-12] MEDS: sodium chloride 0.9% 1,000 ML 30 ML IV (10:27)
[2024-05-12] MEDS: gabapentin 300 mg Capsule PO (10:27)
--- NOTE | 2024-05-12 10:39 | ANES.PREANE2 ---
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 Operation Date: 05/12/24 11:55 Proposed Procedures p Left foot fourth metatarsal head resection(Left) - Rahul Patino DPM Familial anesthetic complications: None Was Beta Elvin taken within 24 hours: N/A Was Clonidine taken within 24 hours: N/A Last intake: Intake Last Liquid Date 05/11/24 Last Liquid Time 23:00 Last Solid Date 05/11/24 Last Solid Time 19:00 Social No alcohol and No tobacco Exam alert, oriented x 3, clear to auscultation bilaterally and regular rate & rhythm Airway Mallampati: Class II Dentition: false CV/HEM Coronary Artery Disease (stent placed 6 years ago, no longer on blood thinners, denies any CP, SOB, syncope, VASQUEZ. Able to achieve > 4 METS w/ no symptoms) Metabolic Hyperlipidemia Neuropsych Cerebrovascular Accident Anesthetic Plan ASA status: 3 Anesthesia: MAC Risk of > 500 ml blood loss (7ml/kg in children): No Medications/Allergies Home Medications Medication Instructions Recorded Confirmed Last Taken Type acetaminophen 300 mg-codeine 30 mg 1 tab PO PRN PRN Pain 04/16/24 05/12/24 05/11/24 History tablet cyclobenzaprine 10 mg tablet 10 mg PO PRN PRN Spasms 04/16/24 05/12/24 05/11/24 History sildenafil 100 mg tablet 100 mg PO DAILY 04/16/24 05/12/24 05/11/24 History simvastatin 20 mg tablet 20 mg PO DAILY 04/16/24 05/12/24 05/11/24 History ibuprofen 800 mg tablet 800 mg PO PRN PRN Pain 05/11/24 05/12/24 05/11/24 History Allergies Allergy/AdvReac Type Severity Reaction Status Date / Time No Known Allergies Allergy Verified 05/11/24 14:47 Current Medications Generic Name Dose Route Start Last Admin Trade Name Freq PRN Reason Stop Dose Admin Sodium Chloride 1,000 mls @ 30 mls/hr 05/12/24 06:45 05/12/24 10:27 Sodium Chloride 0.9% IV 05/13/24 06:44 30 mls/hr .Q24H HARISH Administration PFSH Anesthesia Social History Smoking and tobacco/nicotine status: current some day tobacco/nicotine user Data Anesthesia Cardiac Studies: No Data to Display
--- NOTE | 2024-05-12 11:53 | W.PM.OPSUD ---
Surgery/Procedure H&P Update DATE OF PROCEDURE: May 12, 2024 DATE H&P PERFORMED: 04/16/24 H&P UPDATE INFORMATION: I have reviewed H&P completed within last 30 days, I have examined patient prior to procedure, No changes to prior documentation and H&P is in [facility] [place] EMR on date indicated PREOP DIAGNOSIS: Arthritis fourth MTPJ left foot PLANNED PROCEDURE: Operation Date: 05/12/24 11:55 Proposed Procedures p Left foot fourth metatarsal head resection(Left) - Rahul Patino DPM
[2024-05-12] MEDS: ceFAZolin 2,000 mg SDV 2000 MG IVP (12:06)
[2024-05-12] MEDS: BUPivacaine 0.5% INJ 30 mL XX (12:15)
--- NOTE | 2024-05-12 12:44 | P.BOP_ITS ---
Date of procedure: 05/12/2024 Surgeon name: Kaitlin FontainePHayes Technical Inspector(s) name(s): Donte Mena Procedure(s) performed: Left foot fourth metatarsal head resection Description of findings: Flat and fourth metatarsal head with significant periarticular spurring Estimated blood loss: 5 cc Tourniquet time: 15 minutes Specimen(s) removed: Left foot fourth metatarsal head sent as surgical specimen Post-operative diagnosis: 4th Metatarsal head exostosis
--- NOTE | 2024-05-12 13:30 | ANE.PACU2 ---
Inpatient post-anesthesia follow up: Airway intact: Yes Vital signs: Temperature 97 F Pulse Rate 58 Respiratory Rate 16 Blood Pressure 114/61 Pulse Oximetry 99 Oxygen Delivery Me thod Room Air Oxygen Flow Rate 8 Fraction of Inspir ed Oxygen Hydration adequate: Yes Nausea and vomiting: No Pain level: 1 Mental status: Baseline
--- NOTE | 2024-05-12 20:46 | P.OP_ITS ---
Operative Report Date of procedure: May 12, 2024 Surgeon: Rahul Patino DPM Procedure: Date of procedure: 05/12/2024 Pre-op diagnosis: Hypertrophy left fourth metatarsal head Post-op diagnosis: Same Post-op findings: Hypertrophy left fourth metatarsal head with dorsal spurring Procedure done: Left foot fourth metatarsal head resection CPT 40361 Implants: None Specimens removed: Fourth metatarsal head left foot Surgeon: Dr. Rahul Patino DPM Cornice Maker: Trina Kent Estimated blood loss: 5 cc Tourniquet time: 15 minutes Complications: None Patient is a 63-year-old male that has a history of painful fourth metatarsophalangeal joint with significant spurring and arthritis of the fourth metatarsophalangeal joint.. The patient has had the aforementioned chief complaint for some time. Conservative treatment measures have been attempted and the patient has opted for surgical intervention at this time. A lengthy discussion regarding the procedure, including risks and complications has been had with the patient and is noted in the recent clinic note. Written and verbal consent have been obtained. All patient questions have been answered to the patient?s satisfaction. No written or verbal guarantees have been given or implied. The patient has been NPO since midnight. The history has been reviewed and the history and physical is current. The signed consent was confirmed and placed in the patient chart. Patient imaging has been reviewed and is consistent with the diagnosis. Under mild sedation, the patient was brought into the operating room and placed on the table in the supine position. IV antibiotics were given by the anesthesia team as preoperative surgical prophylaxis. IV sedation was then performed by the anesthesiateam. A local field block was performed using 0.5% Marcaine plain. A pneumatic tourniquet was then placed about the left ankle. The operative extremity was then prepped and draped in the usual fashion. The extremity was then elevated and exsanguinated before the tourniquet was inflated to 250 mmHg. After inflation, the following procedure was then performed. Attention was directed to the left foot where prominence is palpated at the level of fourth metatarsal phalangeal joint. A 4 cm incision was made overlying the fourth metatarsophalangeal joint using #15 blade. Dissection was carried down through subcutaneous and superficial fascia. Any bleeders were cauterized as necessary. The fourth metatarsophalangeal joint capsule was exposed before being incised with a #15 blade. The head of the fourth metatarsal was visualized. Dorsal spurring and intra-articular osteophyte formation was visualized. This was excised and passed from the operative field. Fourth metatarsal head was then visualized. Osteotome and mallet was used to resect the fourth metatarsal at the level of the surgical neck. The capital fragment was then freed from the operative field using a McGlamry scoop and was sent as specimen. The site was then irrigated with copious amounts of sterile saline before attention was directed to closure. Deep tissue was closed with 3-0 Vicryl followed by subcuticular closure with 4-0 Vicryl and skin closure with 4- 0 nylon in horizontal mattress fashion. The tourniquet was let down good hyperemic response was noted to all digits of the left foot. The incision site was dressed with Xeroform, 4 x 4 gauze, Kerlix, Alex. Patient was placed in a postop shoe. The patient tolerated the procedure and anesthesia well and without complication. The patient was transported from the operating room to the recovery room with vital signs stable and vascular status intact to all digits of the left foot. The patient was given both written and verbal instructions to remain weightbearing as tolerated to the operative extremity, to keep dressings/splint clean, dry and intact and to take pain medication as directed. The patient will follow-up in the outpatient setting at their scheduled appointment. The patient was discharged with my personal number and was instructed to call if any questions or issues should arise. They were discharged home once anesthesia criteria was met.
== END 2024-05-12 13:30 | disposition home or self-care (01) ==
PROVIDERS: PCP Family Medicine; Visit Provider Podiatrist Foot & Ankle Surgery
PROC: (CPT 28112; principal; 2024-05-12 11:45)
DX: M89.372 Hypertrophy of bone, left ankle and foot (principal); I25.10 Atherosclerotic heart disease of native coronary artery without angina pectoris; Z95.5 Presence of coronary angioplasty implant and graft; E78.5 Hyperlipidemia, unspecified; Z86.73 Personal history of transient ischemic attack (TIA), and cerebral infarction without residual deficits; F17.200 Nicotine dependence, unspecified, uncomplicated; M19.072 Primary osteoarthritis, left ankle and foot
CPT/HCPCS: 28112; 88305; 88311; J0131; J0690; J2250; J2704; J3010; J3490; J7030

== ENCOUNTER → 2024-05-25 08:43 | Outpatient (BNVA) | payer MEDICARE, SELFPAY | PROVIDERS: PCP Family Medicine; Visit Provider Podiatrist Foot & Ankle Surgery | DX: M19.072 Primary osteoarthritis, left ankle and foot; M79.672 Pain in left foot | CPT/HCPCS: 73630; 99024 ==

== ENCOUNTER → 2024-06-16 13:15 | Outpatient (BNVA) | payer MEDICARE, SELFPAY | PROVIDERS: PCP Family Medicine; Visit Provider Podiatrist Foot & Ankle Surgery | DX: M19.072 Primary osteoarthritis, left ankle and foot | CPT/HCPCS: 99024 ==

== ENCOUNTER → 2025-05-31 10:28 | Outpatient (BNVA) | payer MEDICARE, SELFPAY | PROVIDERS: PCP Family Medicine; Visit Provider Orthopaedic Surgery | DX: M17.0 Bilateral primary osteoarthritis of knee (principal) | CPT/HCPCS: 99204 ==

== ENCOUNTER 2025-06-15 09:56 | Observation (INO) | payer MEDICARE, SELFPAY ==
--- NOTE | 2025-06-14 15:17 | ANES.PREANE2 ---
Pre-Anesthetic Assessment Height/Weight: Height 5 ft 4 in Preop Diagnosis: Knee arthritis Operation Date: 06/15/25 07:00 Proposed Procedures p Total Knee Arthroplasty(Left) - Ilir Majano MD Was Beta Elvin taken within 24 hours: N/A Was Clonidine taken within 24 hours: N/A Social Tobacco and No alcohol Exam alert and oriented x 3 Diminished breath sounds bilaterally Airway Submandibular: within normal limits Cervical ROM: within normal limits Mallampati: Class II Comments: Comments: Edentulous Anesthetic Plan ASA status: 3 Anesthesia: MAC and Regional (specify below) Other: No prior issues with anesthesia NPO since yesterday evening History of essential tremors. Neurowork-up has all been negative. Patient takes propranolol for this, last taken 06/07/2025 CAD history, s/p PCI over 10 years ago. No blood thinners Current smoker, half pack a day Patient states that he is able to perform ADLs, go up a flight of stairs without shortness of breath CBC and type and screen ordered Plan for spinal anesthetic with postop peripheral nerve blocks Medications/Allergies Home Medications ?Medication ?Instructions ?Recorded ?Confirmed ?Last Taken ?Type acetaminophen 300 mg-codeine 30 mg 1 tab PO PRN PRN Pain 04/16/24 06/14/25 05/11/24 History tablet cyclobenzaprine 10 mg tablet 10 mg PO PRN PRN Spasms 04/16/24 06/14/25 05/11/24 History sildenafil 100 mg tablet 100 mg PO DAILY 04/16/24 06/14/25 05/11/24 History propranolol 120 mg capsule,24 120 mg PO DAILY 06/14/25 06/14/25 06/07/25 History hr,extended release Allergies Allergy/AdvReac Type Severity Reaction Status Date / Time No Known Allergies Allergy Verified 05/31/25 10:45 [facility] Anesthesia Social History Smoking and tobacco/nicotine status: current every day tobacco/nicotine user
[2025-06-15] VITALS (22 sets, daily range): BP systolic 85–159; BP diastolic 50–93; PULSE 51–94; RESP 10–21; TEMP 36.1–36.8; O2SAT 93–100; BMI 24.9
--- NOTE | 2025-06-15 06:17 | SUR.PREOP ---
0606 patient called and said he would be here in 10-15 minutes
[2025-06-15 07:05] LABS: Hematocrit 38.8 % (37-53); Hemoglobin 12.60 g/dL (11.27-16.99); Mean Corpuscular HGB Conc 32.5 g/dL (30-55); Mean Corpuscular Hemoglobin 29.5 pg (27-33); Mean Corpuscular Volume 90.9 fl (82-101); Nucleated Red Blood Cells % 0 %; Platelet Count 302 10^3/cmm (157-399); Red Blood Count 4.27 10^6/uL (3.85-5.65); White Blood Count 10.00 10^3/uL (3.29-11.43)
--- NOTE | 2025-06-15 07:06 | W.PM.OPSUD ---
Surgery/Procedure H&P Update DATE OF PROCEDURE: June 15, 2025 DATE H&P PERFORMED: 05/31/25 H&P UPDATE INFORMATION: I have reviewed H&P completed within last 30 days, I have examined patient prior to procedure and No changes to prior documentation PREOP DIAGNOSIS: Knee arthritis PLANNED PROCEDURE: Operation Date: 06/15/25 07:00 Proposed Procedures p Total Knee Arthroplasty(Left) - Ilir Majano MD
[2025-06-15] MEDS: ceFAZolin 2,000 mg SDV 2000 MG IVP ×3 (07:10→22:11)
--- NOTE | 2025-06-15 07:14 | SUR.PREOP ---
0636 patient walked through door and assisted to the switching clerk to be registered.
[2025-06-15] MEDS: tranexamic acid 1,000 mg/10mL SDV 1000 MG IV (07:20)
--- NOTE | 2025-06-15 08:55 | XR_ITS ---
WS: [id number] XR knee LT -2V 39209 REASON FOR EXAM: Left total knee arthroplasty FINDINGS: Total left knee arthroplasty. Components of the arthroplasty are intact and in proper position and alignment. No focal bone abnormality. XR/XR knee LT -2V [id number] IMPRESSION: Total left knee arthroplasty without abnormality.
--- NOTE | 2025-06-15 09:07 | P.OP_ITS ---
Operative Report Date of procedure: June 15, 2025 Surgeon: Ilir Majano MD Procedure: Preoperative diagnosis: End-stage degenerative joint disease left knee Postoperative diagnosis: Same Procedure: Left total knee arthroplasty Surgeon: Ilir Woo MD Stitch Bonding Machine Tender Helper: HEAVEN Whitmore's assistance was necessary for positioning the patient, assistance during the procedure, wound closure, dressing placement. Anesthesia: General EBL: 30 cc Tourniquet time: 43 minutes at 250 mmHg Indications: Danny is a 64-year-old white male presented to the orthopedic offices with complaints of debilitating left knee pain. Subsequent history clinical exam and x-rays all demonstrate end-stage degenerative joint disease of the left knee. He had failed all conservative measures. Subsequently at this time he was then offered a total knee arthroplasty. All risk benefits treatment alternatives were discussed with him and he is agreeable to this at this time. Procedure: After obtaining her consent patient taken the operating room placed the op table supine position general anesthetic administered. Patient then had pneumatic cuff placed from proximal left leg and left leg was prepped and draped usual fashion. After surgical timeout and gravity exsanguination pneumatic cuff inflated to 250 mmHg. With the left foot in the foot holding device knee was flexed and held at 90 degrees flexion. Longitudinal incision made from tibial tubercle to superior pole of patella. Sharp dissected gone down subcutaneous tissues electrocautery used to hemostasis. Knee was opened up along medial parapatellar incision line. Tibial capsule was stripped medially to expose the knee further. Soft tissue was sharply debrided including anterior horns of the menisci and the fat pad. ACL was also removed. Knee was then put out the full extension and soft tissue debrided around the periphery of the patella. Patella was then reamed down to 14 mm thickness with a patella reaming male. Knee was flexed back to 90 degrees with patella and lateral gutter. Appropriate retractors placed including PCL retractor. Tibial cutting guide was positioned on the anterior tibia with appropriate posterior slope and 2 mm cut at the most affected side that being medial. Sagittal saw was then used to make this cut. Should be noted a small osteotome driven anterior to the PCL to protect during this cut. Once Was finished the box cut was made around the insertion of the PCL and then tibial plateau cut was removed piecemeal. Medial tibial plateau was quite sclerotic over the majority the area. PCL retractor was removed drill guide was then used to place a entry point into the distal femur just anterior to the intercondylar notch. Guide codey was then placed up the intramedullary canal distal cutting block was positioned and pinned in place. Distal cut was made with a sagittal saw. Distal femur sized a size 8 femoral cutting block. Appropriate drill holes made. Cutting block was then placed in these drill holes in the distal femur and impacted. Anterior posterior and chamfer cuts were made without any difficulties. PCL retractor was placed back into the knee and remainder of the soft tissues were removed from the joint line including the menisci and any fatty substance. Tibial tray was sized to size E tibial tray and was aligned with external guide codey and pinned in place. Size 10 spacer was placed on this. Then a size 8 femoral trial component was placed on the distal femur impacted. Knee was put through range of motion found to have a slight flexion contracture and not reaching full extension. However remainder of the motion was stable throughout. Patella sized to size 35 patellar button and drill template was placed on this and drilled with appropriate drill holes. Trial patellar button was placed and knee was put through range of motion found to be stable. Components were all removed after drill holes were placed with a femoral trial for permanent post on the permanent implant. All components except the tibial tray were removed. Appropriate drill holes placed in the trial plate and then the drill and punch were used to prepare for tibial tray post. Once is completed this was removed. Small holes were drilled in the sclerotic area to get blood flow into the area of the medial tibial plateau. Knee was then washed with pulse lavage irrigation removing all bone fragments an d soft tissue was not necessary. At this point a permanent size EE tibial tray was impacted in the proximal tibia. Size 8 femoral component was impacted on the distal femur. Trial size 10 spacer was placed and found to have adequate range of motion. Should be noted today posterior release was done prior to placing the permanent components. This now allowed for full extension of the knee. Trial tibial spacer was removed and permanent size 10 spacer was placed without any difficulties. Subsequently a 35 mm patellar button was impacted in the posterior patella. Knee was put through range of motion found to have good stability and range of motion. Patella tracked well. Pneumatic cuff deflated after 43 minutes total tourniquet time. He was washed again with sterile irrigation. Extensor mechanism repaired with #1 Vicryl [id number] sutures. Subcutaneous tissue reapproximated 0 Vicryl interrupted sutures. Skin was closed skin geovany. Wounds are clean and dry dressed with Xeroform gauze sterile gauze dressing coats wrap ABDs and Alex wrap for compression. Patient was awakened transferred to cover room stable condition
--- NOTE | 2025-06-15 10:15 | P.ANESPOST_ITS ---
Inpatient post-anesthesia follow up: Airway intact: Yes Vital signs: Temperature 98.2 F Pulse Rate 84 Respiratory Rate 15 Blood Pressure 159/89 Pulse Oximetry 94 Oxygen Delivery Me thod Room Air Oxygen Flow Rate 10 Fraction of Inspir ed Oxygen Hydration adequate: Yes Nausea and vomiting: No Pain level: 1 Mental status: Baseline Additional Comments: 10 mg of ephedrine administered around 9 50
--- NOTE | 2025-06-15 10:27 | ANES.PROC ---
Anesthesia Procedures Procedure/Date: 06/15/25 Nerve Block ^: Nerve Block 1: Main Anesthesia: spinal anesthesia block Time Out Performed: Yes Consent: requested by attending/covering physician and from patient Laterality: Left Nerve block location: other (IPACK) Anesthesia monitors applied: pulse oximetry, EKG, BP cuff and oxygen Nerve block position: supine Anesthetic Used: ropivicaine 0.5% and other (ropivicaine 0.2%) Amount of anesthesia used (mL): 20 Ultrasound used to: recognize landmarks Nerve Stimulator Used?: No Interscalene/Femoral BLK: other needle (pjunk 4inch) Injection: neg aspiration of heme Patient Tolerated Procedure: well Complications: none
--- NOTE | 2025-06-15 10:32 | ANES.PROC ---
Anesthesia Procedures Procedure/Date: 06/15/25 for postoperative pain control Nerve Block ^: Nerve Block 1: Main Anesthesia: spinal anesthesia block Time Out Performed: Yes Consent: requested by attending/covering physician and from patient Laterality: Left Nerve block location: adductor canal Anesthesia monitors applied: pulse oximetry, EKG, BP cuff and oxygen Nerve block position: supine Anesthetic Used: ropivicaine 0.5% Amount of anesthesia used (mL): 20 Ultrasound used to: recognize landmarks Nerve Stimulator Used?: Yes Interscalene/Femoral BLK: other needle (pjunk 4inch) Injection: neg aspiration of heme Patient Tolerated Procedure: well Complications: none
[2025-06-15] MEDS: chlorhexidine gluconate 0.12% Btl 473 mL 30 ML MUCOUS MEM ×3 (11:28→22:12)
[2025-06-15] MEDS: HYDROcodone-acetaminophen 5-325 mg Tablet 1 TAB PO ×2 (13:31→20:13)
[2025-06-15] MEDS: morphine 4 mg/mL SDV 1 mL IVP (16:22)
[2025-06-15] MEDS: mupirocin oint 22 gm 1 APPLIC NASAL (16:22)
[2025-06-15] MEDS: sennosides-docusate Tablet 2 TAB PO (16:24)
--- NOTE | 2025-06-15 20:00 | PC.NURSE ---
Nurse notified of low b/p.
[2025-06-16] VITALS: BP 116/62; PULSE 77; RESP 16; TEMP 36.4; O2SAT 97
[2025-06-16 03:17] VITALS: RESP 16
[2025-06-16] MEDS: morphine 4 mg/mL SDV 1 mL IVP (03:17)
[2025-06-16 03:42] VITALS: BP 120/73; PULSE 69; RESP 22; TEMP 36.9; O2SAT 97
[2025-06-16 05:20] VITALS: BMI 26.2
[2025-06-16] MEDS: chlorhexidine gluconate 0.12% Btl 473 mL 30 ML MUCOUS MEM (05:37)
[2025-06-16] MEDS: mupirocin oint 22 gm 1 APPLIC NASAL (05:37)
[2025-06-16] MEDS: multivitamin therapeutic Tablet 1 TAB PO (05:38)
[2025-06-16] MEDS: HYDROcodone-acetaminophen 5-325 mg Tablet 1 TAB PO ×3 (05:38→13:16)
[2025-06-16] MEDS: sennosides-docusate Tablet 2 TAB PO (05:38)
[2025-06-16] MEDS: ceFAZolin 2,000 mg SDV 2000 MG IVP (06:16)
[2025-06-16 07:47] VITALS: BP 120/69; PULSE 60; RESP 16; TEMP 36.5; O2SAT 97
[2025-06-16 11:49] VITALS: BP 119/62; PULSE 71; RESP 16; TEMP 36.8; O2SAT 97
--- NOTE | 2025-06-16 12:47 | P.DS_ITS ---
Discharge Providers Date of Admission: 06/15/25 09:56 Date of Discharge: June 16, 2025 Attending Provider at Admission: Ilir Majano MD Attending Provider at Discharge: Ilir Majano MD Primary Care Provider: Danny Ramirez MD Reason for Visit Reason for Visit: K81.1 Brief History: Marbin is a 64-year-old white male who came to the clinics with debilitating left knee pain. He had failed all conservative measures. X-rays demonstrate [id number] presentation medial compartment as well as posterior patella. Therefore was offered a total knee arthroplasty at that time. All risk benefits treatment alternatives were discussed Hospital Course Hospital Course Patient was admitted to the hospital on 06/15/2025 and underwent a left total knee arthroplasty. Subsequently was placed on observation in the hospital overnight to help with pain control and monitoring her his vital signs. Patient had a bed of difficulty with pain control initially but actually got his pain under control eventually. Today postop day 1 he was able to work with physical therapy and was up and ambulatory with a walker he is able to do stairs, and has been cleared by physical therapy to be discharged home. Physical Exam Narrative: Patient on exam was sitting up to a chair. He is dressing still in place and clear and dry. He is still short of full extension actively but can plastering supervisor to just slightly greater than 90 degrees at this time. Urinary Catheter Management: Navarrete: Cath Placed During This Visit: yes, but has since been removed by the nurse Reason for Continuing Indwelling Catheter: Decision to DC Catheter Urinary Catheter Date of Insertion: 06/15/25 Urinary Catheter Time of Insertion: 07:20 Date Urinary Catheter Removed: 06/15/25 Time Urinary Catheter Discontinued: 13:33 Discharge Data Studies Completed and Pending Completed Studies During Hospitalization Category Date Time Status XR knee LT 1-2V [id number] Routine Exams 06/15/25 08:55 Completed Pending at discharge Category Date Time Status Basic Metabolic Panel AM LABS Lab 06/16/25 04:00 Uncollected Complete Blood Count w/Auto AM LABS Lab 06/16/25 04:00 Uncollected Complete Blood Count w/Auto AM LABS Lab 06/17/25 04:00 Uncollected Complete Blood Count w/Auto AM LABS Lab 06/18/25 04:00 Uncollected Radiology Impressions Knee X-Ray 06/15/25 08:55 IMPRESSION: Total left knee arthroplasty without abnormality. Laboratory Results WBC 10.00 10^3/uL (3.29-11.43) 06/15/25 06:55 RBC 4.27 10^6/uL (3.85-5.65) 06/15/25 06:55 Hgb 12.60 g/dL (11.27-16.99) 06/15/25 06:55 Hct 38.8 % (37-53) 06/15/25 06:55 MCV 90.9 fl (82-101) 06/15/25 06:55 MCH 29.5 pg (27-33) 06/15/25 06:55 MCHC 32.5 g/dL (30-55) 06/15/25 06:55 RDW 14.5 % (12.1-15.1) 06/15/25 06:55 Plt Count 302 10^3/cmm (157-399) 06/15/25 06:55 MPV 10.2 fL (7.4-10.4) 06/15/25 06:55 Neut % (Auto) 51.6 % 06/15/25 06:55 Lymph % (Auto) 34.9 % 06/15/25 06:55 Angelina % (Auto) 9.5 % 06/15/25 06:55 Eos % (Auto) 2.8 % 06/15/25 06:55 Baso % (Auto) 0.8 % 06/15/25 06:55 Neut # (Auto) 5.16 10^3/uL (1.8-7.7) 06/15/25 06:55 Lymph # (Auto) 3.5 10^3/uL (0.8-4.8) 06/15/25 06:55 Angelina # (Auto) 1.0 10^3/uL (0.2-0.9) H 06/15/25 06:55 Eos # (Auto) 0.3 10^3/uL (0.0-0.8) 06/15/25 06:55 Baso # (Auto) 0.1 10^3/uL (0.0-0.1) 06/15/25 06:55 Nucleated RBC % (auto) 0 % 06/15/25 06:55 Nucleated RBCs # 0.0 /100WBC 06/15/25 06:55 Blood Type A Positive 06/15/25 06:45 Rho(D) Type Rh positive 06/15/25 06:45 Antibody Screen Negative 06/15/25 06:45 Procedures Performed Left total knee arthroplasty Vitals Last Vital Signs Temp 98.3 F 06/16/25 11:49 Pulse 71 06/16/25 11:49 Resp 16 06/16/25 11:49 BP 119/62 06/16/25 11:49 Pulse Ox 97 06/16/25 11:49 O2 Del Method Room Air 06/16/25 11:49 O2 Flow Rate 10 06/15/25 09:15 Discharge Plan Discharge Patient Disposition: Home Health Service Condition: Stable Prescriptions: New hydrocodone-acetaminophen 7.5-325 mg tablet 1 tab PO Q6H PRN (Reason: pain) Qty: 30 0RF aspirin 325 mg tablet 325 mg PO DAILY Qty: 30 0RF Continued sildenafil 100 mg tablet 100 mg PO DAILY acetaminophen-codeine 300-30 mg tablet 1 tab PO PRN PRN (Reason: Pain) cyclobenzaprine 10 mg tablet 10 mg PO PRN PRN (Reason: Spasms) propranolol 120 mg capsule,extended release 24 hr 120 mg PO DAILY Discharge Order = DC NOW: Discharge Order (Routine); Ordered 06/16/25 Ordered By: Ilir Majano Other Ambulatory Orders: DME: [facility] (Order) Location: None Selected Ordered By: Ilir Majano Referrals: [facility] [Outside] [facility] [Outside] Ilir Majano MD [Physician, Orthopedics] - 07/07/25 8:45 am Discharge Diet: Advance as tolerated Discharge Activity: Increase activity as tolerated Patient Instructions: Acute Wound Care (DC), Opioid Safety, Post Anesthesia Care, Patient Portal & Alfredo Instructions Activity Restrictions/Additional Instructions: May change dressing in 3 days. Must cover wound to shower Take 1 adult aspirin daily May supplement pain medicine with ibuprofen 600 to 800 mg 3 times daily Ice and elevate often the left knee Work on regaining motion of the left knee. Follow-up in 3 weeks for repeat evaluation and geovany Discharge Attestations Time Spent in Discharge Care*: less than 30 min Quality Metrics Clinical Quality Measures [ No reported AMI, CVA or VTE this stay] Coding Level of Care Code Acute Code for Chg Fwmary
== END 2025-06-16 14:28 | disposition home health service (06) ==
LOC: MEDSURG 09:57
PROVIDERS: Student in an Organized Health Care Education/Training Program; Admitting Provider Orthopaedic Surgery; PCP Family Medicine; Visit Provider Orthopaedic Surgery
PROC: (CPT 27447; principal; 2025-06-15 07:00)
DX: M17.12 Unilateral primary osteoarthritis, left knee (principal); I25.10 Atherosclerotic heart disease of native coronary artery without angina pectoris; F17.200 Nicotine dependence, unspecified, uncomplicated
CPT/HCPCS: 27447; 36415; 51702; 73560; 85025; 86850; 86900; 97110; 97116; 97161; 97165; 97530; A4216; C1776; G0378; J0690; J1100; J1885; J2250; J2270; J2371; J2405; J2704; J3010; J7030; J9999

== ENCOUNTER 2025-06-19 14:32 | Emergency (ER) | payer MEDICARE, MEDICAID, SELFPAY ==
[2025-06-19 14:33] VITALS: BP 121/67; PULSE 76; RESP 16; TEMP 36.8; O2SAT 96; BMI 24.9
--- OUTSIDE RECORDS SUMMARY | 2025-06-19 14:37 | XMS_ITS | Encounter Summary ---
Author Organization [email or web address] Address [address] [place] [address] Care Team Providers Care Mixer Crane Operator Name Role Phone Andrae Wu MD Primary Care Provider Encounter Details Date Type Department Care Team (Late st Contact Info) Description 08/28/2006 Outpatient Historical Division of Neurology 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
--- OUTSIDE RECORDS SUMMARY | 2025-06-19 14:38 | XMS_ITS | Encounter Summary ---
Author Organization [facility] Address 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
--- OUTSIDE RECORDS SUMMARY | 2025-06-19 14:38 | XMS_ITS | Encounter Summary ---
Author Organization [employer] [facility] Address [address] [place] [address] Care Team Providers Care Area Field Worker Name Role Phone Andrae Wu MD Primary Care Provider [phone] Encounter Details Date Type Department Care Team (Late st Contact Info) Description 09/02/2006 Outpatient Historical [facility] [address] [employer] [address] [place] [address] Olegario Arenas MD [address] [place] [address] Social History Tobacco Use Types Packs/Day Years Used Date Smoking Tobacco: Never Assessed Sex and Gender Information Value Date Recorded Sex Assigned at Not on file 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
--- OUTSIDE RECORDS SUMMARY | 2025-06-19 14:38 | XMS_ITS | Encounter Summary ---
Author Organization [facility] Address 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
--- OUTSIDE RECORDS SUMMARY | 2025-06-19 14:38 | XMS_ITS | Encounter Summary ---
Author Organization [facility] Address 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 Gender Identity Not on file Sexual Orientation Not on file documented as of this encounter Plan of Treatment Not on file documented as of this encounter Procedures Procedure Name Priority Date/Time Associated Diagnosis Comments CBC WITH DIFFERENTIAL Routine 09/29/2006 11:30 AM APARTMENT LEASING SPECIALIST CBC WITH DIFFERENTIAL Routine 09/29/2006 11:30 AM APARTMENT LEASING SPECIALIST VANCOMYCIN LEVEL TROUGH Routine 09/29/2006 11:30 AM APARTMENT LEASING SPECIALIST PHENYTOIN LEVEL, TOTAL Routine 7 11:30 AM APARTMENT LEASING SPECIALIST COMPREHENSIVE METABOLIC PANEL Routine 09/29/2006 11:30 AM APARTMENT LEASING SPECIALIST documented in this encounter Results * VANCOMYCIN LEVEL TROUGH (09/29/2006 11:30 AM APARTMENT LEASING SPECIALIST) VANCOMYCIN, TROUGH 12.4 5.0 - 15.0 ug/mL INTERFACE SYSTEM Comment: Vancomycin Trough Toxic Level= >15.0 ug/mL 09/29/2006 11:3 0 AM APARTMENT LEASING SPECIALIST Rahul Ferguson MD CHEMISTRY ORDERABLES Edite d Performing Organization Address [facility] de Phone Number INTERFACE SYSTEM Refer to clinic/hospital department * (ABNORMAL) CBC WITH DIFFERENTIAL (09/29/2006 11:30 AM APARTMENT LEASING SPECIALIST) NEUTROPHILS 42(L) 45 - 70 % INTERFAC E SYSTEM LYMPHOCYTES 39 16 - 45 % INTERFAC E SYSTEM MONOCYTES 14(H) 3 - 13 % INTERFACE SYSTEM EOSINOPHILS 4 0 - 7 % INTERFAC E SYSTEM BASOPHILS 1 0 - 2 % INTERFACE SYSTEM NEUTROPHIL ABSOLUTE 1.80(L) 1.90 - 7.00 K/uL INTERFACE SYSTEM LYMPHOCYTE ABSOLUTE 1.65 0.70 - 4.50 K/uL INTERFACE SYSTEM MONOCYTE ABSOLUTE 0.60 0.10 - 1.30 K/uL INTERFACE SYSTEM EOSINOPHIL ABSOLUTE 0.17 0.00 - 0.70 K/uL INTERFACE SYSTEM BASOPHILS ABSOLUTE 0.04 0.00 - 0.20 K/uL INTERFACE SYSTEM 09/29/2006 11:3 0 AM APARTMENT LEASING SPECIALIST Rahul Ferguson MD HEMATOLOGY ORDERABLES Edit ed Performing Organization Address [facility] Phone Number INTERFACE SYSTEM Refer to clinic/hospital department * (ABNORMAL) CBC WITH DIFFERENTIAL (09/29/2006 11:30 AM APARTMENT LEASING SPECIALIST) WBC 4.3 4.0 - 9.8 K/uL INTERFACE SYSTEM RBC 3.65(L) 4.50 - 5.40 M/uL INTERFACE SYSTEM HEMOGLOBIN 11.2(L) 13.6 - 16.5 g/dL INTERFACE SYSTEM HEMATOCRIT 32.7(L) 40.0 - 48.0 % INTERFACE SYSTEM MCV 89.6 82.0 - 99.0 fL INTERFACE SYSTEM MCH 30.7 27.2 - 32.6 pg INTERFACE SYSTEM MCHC 34.3 31.5 - 35.5 % INTERFACE SYSTEM RDW 14.1 11.5 - 14.5 % INTERFACE SYSTEM RDW-STDEV 46.8 37.1 - 48.7 fL INTERFACE SYSTEM PLATELETS 229 140 - 350 K/uL INTERFACE SYSTEM MPV 10.5 9.3 - 12.4 fL INTERFACE SYSTEM 09/29/2006 11:3 0 AM APARTMENT LEASING SPECIALIST Rahul Ferguson MD HEMATOLOGY ORDERABLES Edit ed INTERFACE SYSTEM Refer to clinic/hospital department * (ABNORMAL) PHENYTOIN TOTAL (09/29/2006 11:30 AM APARTMENT LEASING SPECIALIST) PHENYTOIN TOTAL 8.8(L) 10.0 - 20.0 ug/mL INTERFACE SYSTEM Comment: Phenytoin Toxic Level = >30 ug/mL Phenytoin Severely Toxic Level = >40 ug/mL 09/29/2006 11:3 0 AM APARTMENT LEASING SPECIALIST Rahul Ferguson MD CHEMISTRY ORDERABLES Edite d Performing Organization Address [facility] de Phone Number INTERFACE SYSTEM Refer to clinic/hospital department * COMPREHENSIVE METABOLIC PANEL (09/29/2006 11:30 AM APARTMENT LEASING SPECIALIST) GLUCOSE 86 65 - 99 mg/dL INTERFACE SYSTEM CREATININE 0.7 0.7 - 1.2 mg/dL INTERFACE SYSTEM CALCIUM 9.3 8.6 - 10.2 mg/dL INTERFACE SYSTEM AST 21 12 - 38 U/L INTERFACE SYSTEM ALKALINE PHOSPHATASE 106 40 - 129 U/L INTERFACE SYSTEM BILIRUBIN TOTAL 0.2 0.2 - 1.0 mg/dL INTERFACE SYSTEM ALBUMIN 4.0 3.4 - 4.8 g/dL INTERFACE SYSTEM TOTAL PROTEIN 6.8 6.0 - 8.3 g/dL INTERFACE SYSTEM ALT 31 0 - 41 U/L INTERFACE SYSTEM BUN 20 6 - 20 mg/dL INTERFACE SYSTEM SODIUM 141 135 - 145 mmol/L INTERFACE SYSTEM POTASSIUM 4.5 3.5 - 4.9 mmol/L INTERFACE SYSTEM CHLORIDE 104 96 - 108 mmol/L INTERFACE SYSTEM CO2 29 22 - 30 mmol/L INTERFACE SYSTEM GFR, >60 >=60 mL/min/1.7 sq meter INTERFACE SYSTEM GFR >60 >=60 mL/min/1.7 sq meter INTERFACE SYSTEM Comment: Estimated GFR rate interpretative information for both Americans and non- Americans is available on the [facility] Intranet at: [email or web address] Select: Lab Policies and Procedures Select: Reference Ranges - GFR 09/29/2006 11:3 0 AM APARTMENT LEASING SPECIALIST Rahul Ferguson MD CHEMISTRY ORDERABLES Edite d INTERFACE SYSTEM Refer to clinic/hospital department documented in this encounter Visit Diagnoses Not on filedocumented in this encounter Care Teams Manager Software Development Relationship Specialty Start Date End Date Andrae Wu MD [address] [place] [id number] PCP - General 09/29/06 05/13/10 documented as of this encounter
--- OUTSIDE RECORDS SUMMARY | 2025-06-19 14:38 | XMS_ITS | Encounter Summary ---
Author Organization [facility] Address [address] [place] [address] Care Team Providers Care Sanitation Superintendent Name Role Phone Andrae Wu MD Primary Care Provider [phone] Encounter Details Date Type Department Care Team (Latest Contact Info) Description 08/27/2006 Inpatient Historical [facility] Ki Saavedra MD [address] [facility] [address] [place], [place] [id number] Other Postoperative Infection (Primary Dx); Cellulitis and Abscess of Neck; Acute Respiratory Failure (CMS/HCC); Other Convulsions (CMS/HCC); Abn React-Surg Proc NEC; Place of Occurrence, Residential [facility]; Tobacco Use Disorder; Leukocytosis, Unspecified Social History Tobacco Use Types Packs/Day Years Used Date Smoking Tobacco: Never Assessed Sex and Gender Information Value Date Recorded Sex Assigned at Not on file Legal Sex Male 5:17 AM MOTEL OPERATOR Gender Identity Not on file Sexual Orientation Not on file documented as of this encounter Plan of Treatment Not on file documented as of this encounter Procedures Procedure Name Priority Date/Time Associated Diagnosis Comments POC GLUCOSE Routine 09/02/2006 1:06 PM MOTEL OPERATOR POC GLUCOSE Routine 09/02/2006 9:17 AM MOTEL OPERATOR POC GLUCOSE Routine 09/02/2006 6:16 AM MOTEL OPERATOR POC GLUCOSE Routine 09/02/2006 12:49 AM MOTEL OPERATOR POC GLUCOSE Routine 09/01/2006 8:43 PM MOTEL OPERATOR POC GLUCOSE Routine 09/01/2006 5:36 PM MOTEL OPERATOR POC GLUCOSE Routine 09/01/2006 11:36 AM MOTEL OPERATOR CBC WITH DIFFERENTIAL Routine 09/01/2006 6:06 AM MOTEL OPERATOR CBC WITH DIFFERENTIAL Routine 09/01/2006 6:06 AM MOTEL OPERATOR PHOSPHORUS Routine 09/01/2006 6:06 AM MOTEL OPERATOR MAGNESIUM LEVEL Routine 09/01/2006 6:06 AM MOTEL OPERATOR VANCOMYCIN LEVEL TROUGH Routine 09/01/2006 6:06 AM MOTEL OPERATOR BASIC METABOLIC PANEL Routine 09/01/2006 6:06 AM MOTEL OPERATOR POC GLUCOSE Routine 09/01/2006 5:24 AM MOTEL OPERATOR POC GLUCOSE Routine 08/31/2006 8:00 PM MOTEL OPERATOR POC GLUCOSE Routine 08/31/2006 5:32 PM MOTEL OPERATOR POC GLUCOSE Routine 08/31/2006 12:32 PM MOTEL OPERATOR POC GLUCOSE Routine 08/31/2006 8:47 AM MOTEL OPERATOR POC GLUCOSE Routine 08/31/2006 4:33 AM MOTEL OPERATOR CBC WITH DIFFERENTIAL Routine 08/31/2006 4:30 AM MOTEL OPERATOR CBC WITH DIFFERENTIAL Routine 08/31/2006 4:30 AM MOTEL OPERATOR PHOSPHORUS Routine 08/31/2006 4:30 AM MOTEL OPERATOR MAGNESIUM LEVEL Routine 08/31/2006 4:30 AM MOTEL OPERATOR PHENYTOIN LEVEL, TOTAL Routine 6 4:30 AM MOTEL OPERATOR BASIC METABOLIC PANEL Routine 08/31/2006 4:30 AM MOTEL OPERATOR POC GLUCOSE Routine 08/31/2006 12:18 AM MOTEL OPERATOR POC GLUCOSE Routine 08/30/2006 8:30 PM MOTEL OPERATOR POC GLUCOSE Routine 08/30/2006 4:36 PM MOTEL OPERATOR VANCOMYCIN LEVEL TROUGH Routine 08/30/2006 2:55 PM MOTEL OPERATOR POC GLUCOSE Routine 08/30/2006 1:04 PM MOTEL OPERATOR POC GLUCOSE Routine 08/30/2006 8:02 AM MOTEL OPERATOR CBC WITH DIFFERENTIAL Routine 08/30/2006 5:00 AM MOTEL OPERATOR CBC WITH DIFFERENTIAL Routine 08/30/2006 5:00 AM MOTEL OPERATOR PHOSPHORUS Routine 08/30/2006 5:00 AM MOTEL OPERATOR MAGNESIUM LEVEL Routine 08/30/2006 5:00 AM MOTEL OPERATOR PHENYTOIN LEVEL, TOTAL Routine 6 5:00 AM MOTEL OPERATOR BASIC METABOLIC PANEL Routine 08/30/2006 5:00 AM MOTEL OPERATOR POC GLUCOSE Routine 08/30/2006 4:25 AM MOTEL OPERATOR POC GLUCOSE Routine 08/29/2006 11:53 PM MOTEL OPERATOR POC GLUCOSE Routine 08/29/2006 8:11 PM MOTEL OPERATOR POC GLUCOSE Routine 08/29/2006 5:39 PM MOTEL OPERATOR POC GLUCOSE Routine 08/29/2006 11:34 AM MOTEL OPERATOR POC GLUCOSE Routine 08/29/2006 5:51 AM MOTEL OPERATOR CBC WITH DIFFERENTIAL Routine 08/29/2006 4:50 AM MOTEL OPERATOR CBC WITH DIFFERENTIAL Routine 08/29/2006 4:50 AM MOTEL OPERATOR PHOSPHORUS Routine 08/29/2006 4:50 AM MOTEL OPERATOR MAGNESIUM LEVEL Routine 08/29/2006 4:50 AM MOTEL OPERATOR PHENYTOIN LEVEL, TOTAL Routine 6 4:50 AM MOTEL OPERATOR BASIC METABOLIC PANEL Routine 08/29/2006 4:50 AM MOTEL OPERATOR POC GLUCOSE Routine 08/28/2006 11:38 PM MOTEL OPERATOR POC GLUCOSE Routine 08/28/2006 5:42 PM MOTEL OPERATOR VANCOMYCIN LEVEL TROUGH Routine 08/28/2006 2:20 PM MOTEL OPERATOR POC GLUCOSE Routine 08/28/2006 11:27 AM MOTEL OPERATOR POC GLUCOSE Routine 08/28/2006 6:00 AM MOTEL OPERATOR CBC WITH DIFFERENTIAL Routine 08/28/2006 4:15 AM MOTEL OPERATOR CBC WITH DIFFERENTIAL Routine 08/28/2006 4:15 AM MOTEL OPERATOR PHOSPHORUS Routine 08/28/2006 4:15 AM MOTEL OPERATOR MAGNESIUM LEVEL Routine 08/28/2006 4:15 AM MOTEL OPERATOR PHENYTOIN LEVEL, TOTAL Routine 6 4:15 AM MOTEL OPERATOR COMPREHENSIVE METABOLIC PANEL Routine 08/28/2006 4:15 AM MOTEL OPERATOR POC GLUCOSE Routine 08/28/2006 12:48 AM MOTEL OPERATOR CBC WITH DIFFERENTIAL Routine 08/27/2006 11:25 PM MOTEL OPERATOR CBC WITH DIFFERENTIAL Routine 08/27/2006 11:25 PM MOTEL OPERATOR PHOSPHORUS Routine 08/27/2006 11:25 PM MOTEL OPERATOR MAGNESIUM LEVEL Routine 08/27/2006 11:25 PM MOTEL OPERATOR COMPREHENSIVE METABOLIC PANEL Routine 08/27/2006 11:25 PM MOTEL OPERATOR POC, BLOOD GASES Routine 08/27/2006 5:39 PM MOTEL OPERATOR MAGNESIUM LEVEL Routine 08/27/2006 1:16 PM MOTEL OPERATOR CBC WITH DIFFERENTIAL Routine 08/27/2006 1:13 PM MOTEL OPERATOR CBC WITH DIFFERENTIAL Routine 08/27/2006 1:13 PM MOTEL OPERATOR documented in this encounter Results * (ABNORMAL) POC GLUCOSE (09/02/2006 1:06 PM MOTEL OPERATOR) GLUCOSE POC 133(H) 65 - 99 mg/dL INTERFACE SYSTEM 09/02/2006 1:06 PM MOTEL OPERATOR us Ki Saavedra MD POINT OF CARE TESTING Final Result Performing Organization Address [facility] de Phone Number INTERFACE SYSTEM Refer to clinic/hospital department * (ABNORMAL) POC GLUCOSE (09/02/2006 9:17 AM MOTEL OPERATOR) GLUCOSE POC 256(H) 65 - 99 mg/dL INTERFACE SYSTEM 09/02/2006 9:17 AM MOTEL OPERATOR us Ki Saavedra MD POINT OF CARE TESTING Final Result Performing Organization Address [facility] Co de Phone Number INTERFACE SYSTEM Refer to clinic/hospital department * (ABNORMAL) POC GLUCOSE (09/02/2006 6:16 AM MOTEL OPERATOR) GLUCOSE POC 128(H) 65 - 99 mg/dL INTERFACE SYSTEM 09/02/2006 6:16 AM MOTEL OPERATOR us Ki Saavedra MD POINT OF CARE TESTING Final Result Performing Organization Address [facility] Phone Number INTERFACE SYSTEM Refer to clinic/hospital department * (ABNORMAL) POC GLUCOSE (09/02/2006 12:49 AM MOTEL OPERATOR) GLUCOSE POC 161(H) 65 - 99 mg/dL INTERFACE SYSTEM 09/02/2006 12:4 9 AM MOTEL OPERATOR us Ki Saavedra MD POINT OF CARE TESTING Final Result Performing Organization Address [facility] Phone Number INTERFACE SYSTEM Refer to clinic/hospital department * (ABNORMAL) POC GLUCOSE (09/01/2006 8:43 PM MOTEL OPERATOR) GLUCOSE POC 126(H) 65 - 99 mg/dL INTERFACE SYSTEM 09/01/2006 8:43 PM MOTEL OPERATOR us Ki Saavedra MD POINT OF CARE TESTING Final Result Performing Organization Address [facility] Phone Number INTERFACE SYSTEM Refer to clinic/hospital department * (ABNORMAL) POC GLUCOSE (09/01/2006 5:36 PM MOTEL OPERATOR) COMMENT, GLU POC Notified RN INTERFACE SYSTEM GLUCOSE POC 149(H) 65 - 99 mg/dL INTERFACE SYSTEM 09/01/2006 5:36 PM MOTEL OPERATOR us Ki Saavedra MD POINT OF CARE TESTING Final Result Performing Organization Address [facility] Phone Number INTERFACE SYSTEM Refer to clinic/hospital department * (ABNORMAL) POC GLUCOSE (09/01/2006 11:36 AM MOTEL OPERATOR) COMMENT, GLU POC Notified RN INTERFACE SYSTEM GLUCOSE POC 134(H) 65 - 99 mg/dL INTERFACE SYSTEM Comment: 07/31/2006 Change in reference range to correspond to Main Lab reference range. 09/01/2006 11:3 6 AM MOTEL OPERATOR us Ki Saavedra MD POINT OF CARE TESTING Final Result Performing Organization Address [facility]/ZIP Co de Phone Number INTERFACE SYSTEM Refer to clinic/hospital department * CBC WITH DIFFERENTIAL (09/01/2006 6:06 AM MOTEL OPERATOR) NEUTROPHILS 48 45 - 70 % INTERFAC E SYSTEM LYMPHOCYTES 42 16 - 45 % INTERFAC E SYSTEM MONOCYTES 8 3 - 13 % INTERFACE SYSTEM EOSINOPHILS 1 0 - 7 % INTERFAC E SYSTEM BASOPHILS 1 0 - 2 % INTERFACE SYSTEM NEUTROPHIL ABSOLUTE 4.37 1.90 - 7.00 K/uL INTERFACE SYSTEM LYMPHOCYTE ABSOLUTE 3.76 0.70 - 4.50 K/uL INTERFACE SYSTEM MONOCYTE ABSOLUTE 0.76 0.10 - 1.30 K/uL INTERFACE SYSTEM EOSINOPHIL ABSOLUTE 0.08 0.00 - 0.70 K/uL INTERFACE SYSTEM BASOPHILS ABSOLUTE 0.05 0.00 - 0.20 K/uL INTERFACE SYSTEM 09/01/2006 6:06 AM MOTEL OPERATOR us Sharon Ontiveros MD HEMATOLOGY ORDERABLES Final Resu lt Performing Organization Address [facility] de Phone Number INTERFACE SYSTEM Refer to clinic/hospital department * (ABNORMAL) CBC WITH DIFFERENTIAL (09/01/2006 6:06 AM MOTEL OPERATOR) WBC 9.0 4.0 - 9.8 K/uL INTERFACE SYSTEM RBC 4.02(L) 4.50 - 5.40 M/uL INTERFACE SYSTEM HEMOGLOBIN 11.9(L) 13.6 - 16.5 g/dL INTERFACE SYSTEM HEMATOCRIT 34.4(L) 40.0 - 48.0 % INTERFACE SYSTEM MCV 85.6 82.0 - 99.0 fL INTERFACE SYSTEM MCH 29.6 27.2 - 32.6 pg INTERFACE SYSTEM MCHC 34.6 31.5 - 35.5 % INTERFACE SYSTEM RDW 14.1 11.5 - 14.5 % INTERFACE SYSTEM RDW-STDEV 44.3 37.1 - 48.7 fL INTERFACE SYSTEM PLATELETS 382(H) 140 - 350 K/uL INTERFACE SYSTEM MPV 10.7 9.3 - 12.4 fL INTERFACE SYSTEM 09/01/2006 6:06 AM MOTEL OPERATOR us Sharon Ontiveros MD HEMATOLOGY ORDERABLES Final Resu lt Performing Organization Address [facility] de Phone Number INTERFACE SYSTEM Refer to clinic/hospital department * VANCOMYCIN LEVEL TROUGH (09/01/2006 6:06 AM MOTEL OPERATOR) VANCOMYCIN, TROUGH 13.3 5.0 - 15.0 ug/mL INTERFACE SYSTEM Comment: Vancomycin Trough Toxic Level= >15.0 ug/mL 09/01/2006 6:06 AM MOTEL OPERATOR Maria Dolores Bashir MD CHEMISTRY ORDERABLES Final Re sult Performing Organization Address [facility] Phone Number INTERFACE SYSTEM Refer to clinic/hospital department * (ABNORMAL) PHOSPHORUS (09/01/2006 6:06 AM MOTEL OPERATOR) PHOSPHORUS 2.0(L) 2.5 - 4.5 mg/dL INTERFACE SYSTEM 09/01/2006 6:06 AM MOTEL OPERATOR Sharon Ontiveros MD CHEMISTRY ORDERABLES Final Resul t Performing Organization Address [facility] Phone Number INTERFACE SYSTEM Refer to clinic/hospital department * MAGNESIUM LEVEL (09/01/2006 6:06 AM MOTEL OPERATOR) MAGNESIUM 2.0 1.5 - 2.5 mg/dL INTERFACE SYSTEM 09/01/2006 6:06 AM MOTEL OPERATOR us Sharon Ontiveros MD CHEMISTRY ORDERABLES Final Resul t Performing Organization Address [facility] Phone Number INTERFACE SYSTEM Refer to clinic/hospital department * (ABNORMAL) BASIC METABOLIC PANEL (09/01/2006 6:06 AM MOTEL OPERATOR) SODIUM 140 135 - 145 mmol/L INTERFACE SYSTEM POTASSIUM 3.2(L) 3.5 - 4.9 mmol/L INTERFACE SYSTEM CHLORIDE 105 96 - 108 mmol/L INTERFACE SYSTEM GLUCOSE 89 65 - 99 mg/dL INTERFACE SYSTEM CREATININE 0.77 0.67 - 1.17 mg/dL INTERFACE SYSTEM Comment:Note: Effective 07/16 New Methodolgy and Reference Ranges CALCIUM 8.5 8.4 - 10.2 mg/dL INTERFACE SYSTEM BUN 16 6 - 20 mg/dL INTERFACE SYSTEM CO2 22 22 - 30 mmol/L INTERFACE SYSTEM GFR, >60 >=60 mL/min/1. 7 sq meter INTERFACE SYSTEM GFR >60 >=60 mL/min/1. 7 sq meter INTERFACE SYSTEM Comment: Estimated GFR rate interpretative information for both Americans and non- Americans is available on the [facility] Intranet at: [email or web address] Select: Lab Policies and Procedures Select: Reference Ranges - GFR 09/01/2006 6:06 AM MOTEL OPERATOR us Sharon Ontiveros MD CHEMISTRY ORDERABLES Final Resul t Performing Organization Address [facility] Phone Number INTERFACE SYSTEM Refer to clinic/hospital department * (ABNORMAL) POC GLUCOSE (09/01/2006 5:24 AM MOTEL OPERATOR) GLUCOSE POC 106(H) 65 - 99 mg/dL INTERFACE SYSTEM Comment: 07/31/2006 Change in reference range to correspond to Main Lab reference range. 09/01/2006 5:24 AM MOTEL OPERATOR us Ki Saavedra MD POINT OF CARE TESTING Final Result Performing Organization Address [facility] Phone Number INTERFACE SYSTEM Refer to clinic/hospital department * (ABNORMAL) POC GLUCOSE (08/31/2006 8:00 PM MOTEL OPERATOR) GLUCOSE POC 154(H) 65 - 99 mg/dL INTERFACE SYSTEM Comment: 07/31/2006 Change in reference range to correspond to Main Lab reference range. 08/31/2006 8:00 PM MOTEL OPERATOR us Ki Saavedra MD POINT OF CARE TESTING Final Result Performing Organization Address [facility] Phone Number INTERFACE SYSTEM Refer to clinic/hospital department * (ABNORMAL) POC GLUCOSE (08/31/2006 5:32 PM MOTEL OPERATOR) GLUCOSE POC 194(H) 65 - 99 mg/dL INTERFACE SYSTEM Comment: 07/31/2006 Change in reference range to correspond to Main Lab reference range. 08/31/2006 5:32 PM MOTEL OPERATOR us Ki Saavedra MD POINT OF CARE TESTING Final Result Performing Organization Address [facility] Phone Number INTERFACE SYSTEM Refer to clinic/hospital department * (ABNORMAL) POC GLUCOSE (08/31/2006 12:32 PM MOTEL OPERATOR) GLUCOSE POC 126(H) 65 - 99 mg/dL INTERFACE SYSTEM Comment: 07/31/2006 Change in reference range to correspond to Main Lab reference range. 08/31/2006 12:3 2 PM MOTEL OPERATOR us Ki Saavedra MD POINT OF CARE TESTING Final Result Performing Organization Address [facility] Phone Number INTERFACE SYSTEM Refer to clinic/hospital department * (ABNORMAL) POC GLUCOSE (08/31/2006 8:47 AM MOTEL OPERATOR) GLUCOSE POC 149(H) 65 - 99 mg/dL INTERFACE SYSTEM Comment: 07/31/2006 Change in reference range to correspond to Main Lab reference range. 08/31/2006 8:47 AM MOTEL OPERATOR us Ki Saavedra MD POINT OF CARE TESTING Final Result Performing Organization Address [facility] Phone Number INTERFACE SYSTEM Refer to clinic/hospital department * (ABNORMAL) POC GLUCOSE (08/31/2006 4:33 AM MOTEL OPERATOR) GLUCOSE POC 116(H) 65 - 99 mg/dL INTERFACE SYSTEM Comment: 07/31/2006 Change in reference range to correspond to Main Lab reference range. 08/31/2006 4:33 AM MOTEL OPERATOR us Ki Saavedra MD POINT OF CARE TESTING Final Result Performing Organization Address [facility] Phone Number INTERFACE SYSTEM Refer to clinic/hospital department * (ABNORMAL) CBC WITH DIFFERENTIAL (08/31/2006 4:30 AM MOTEL OPERATOR) NEUTROPHILS 83(H) 45 - 70 % INTERFAC E SYSTEM LYMPHOCYTES 13(L) 16 - 45 % INTERFAC E SYSTEM MONOCYTES 4 3 - 13 % INTERFACE SYSTEM EOSINOPHILS 0 0 - 7 % INTERFAC E SYSTEM BASOPHILS 0 0 - 2 % INTERFACE SYSTEM NEUTROPHIL ABSOLUTE 9.79(H) 1.90 - 7.00 K/uL INTERFACE SYSTEM LYMPHOCYTE ABSOLUTE 1.55 0.70 - 4.50 K/uL INTERFACE SYSTEM MONOCYTE ABSOLUTE 0.46 0.10 - 1.30 K/uL INTERFACE SYSTEM EOSINOPHIL ABSOLUTE 0.02 0.00 - 0.70 K/uL INTERFACE SYSTEM BASOPHILS ABSOLUTE 0.01 0.00 - 0.20 K/uL INTERFACE SYSTEM 08/31/2006 4:30 AM MOTEL OPERATOR Jaime Haas MD HEMATOLOGY ORDERABLES Final Re sult Performing Organization Address [facility] Phone Number INTERFACE SYSTEM Refer to clinic/hospital department * (ABNORMAL) CBC WITH DIFFERENTIAL (08/31/2006 4:30 AM MOTEL OPERATOR) WBC 11.8(H) 4.0 - 9.8 K/uL INTERFACE SYSTEM RBC 3.59(L) 4.50 - 5.40 M/uL INTERFACE SYSTEM HEMOGLOBIN 10.8(L) 13.6 - 16.5 g/dL INTERFACE SYSTEM HEMATOCRIT 30.6(L) 40.0 - 48.0 % INTERFACE SYSTEM MCV 85.2 82.0 - 99.0 fL INTERFACE SYSTEM MCH 30.1 27.2 - 32.6 pg INTERFACE SYSTEM MCHC 35.3 31.5 - 35.5 % INTERFACE SYSTEM RDW 13.8 11.5 - 14.5 % INTERFACE SYSTEM RDW-STDEV 43.0 37.1 - 48.7 fL INTERFACE SYSTEM PLATELETS 305 140 - 350 K/uL INTERFACE SYSTEM MPV 10.2 9.3 - 12.4 fL INTERFACE SYSTEM 08/31/2006 4:30 AM MOTEL OPERATOR us Jaime Haas MD HEMATOLOGY ORDERABLES Final Re sult Performing Organization Address [facility] de Phone Number INTERFACE SYSTEM Refer to clinic/hospital department * PHOSPHORUS (08/31/2006 4:30 AM MOTEL OPERATOR) PHOSPHORUS 3.3 2.5 - 4.5 mg/dL INTERFACE SYSTEM 08/31/2006 4:30 AM MOTEL OPERATOR us Jaime Haas MD CHEMISTRY ORDERABLES Final Res ult Performing Organization Address [facility] Phone Number INTERFACE SYSTEM Refer to clinic/hospital department * MAGNESIUM LEVEL (08/31/2006 4:30 AM MOTEL OPERATOR) MAGNESIUM 2.1 1.5 - 2.5 mg/dL INTERFACE SYSTEM 08/31/2006 4:30 AM MOTEL OPERATOR us Jaime Haas MD CHEMISTRY ORDERABLES Final Res ult Performing Organization Address [facility] Phone Number INTERFACE SYSTEM Refer to clinic/hospital department * (ABNORMAL) BASIC METABOLIC PANEL (08/31/2006 4:30 AM MOTEL OPERATOR) GLUCOSE 102(H) 65 - 99 mg/dL INTERFACE SYSTEM CREATININE 0.67 0.67 - 1.17 mg/dL INTERFACE SYSTEM Comment:Note: Effective 07/16 New Methodology and Reference Ranges CALCIUM 8.3(L) 8.4 - 10.2 mg/dL INTERFACE SYSTEM BUN 16 6 - 20 mg/dL INTERFACE SYSTEM SODIUM 140 135 - 145 mmol/L INTERFACE SYSTEM POTASSIUM 3.8 3.5 - 4.9 mmol/L INTERFACE SYSTEM CHLORIDE 106 96 - 108 mmol/L INTERFACE SYSTEM CO2 21(L) 22 - 30 mmol/L INTERFACE SYSTEM GFR, >60 >=60 mL/min/1. 7 sq meter INTERFACE SYSTEM GFR >60 >=60 mL/min/1. 7 sq meter INTERFACE SYSTEM Comment: Estimated GFR rate interpretative information for both Americans and non- Americans is available on the [facility] Intranet at: [email or web address] Select: Lab Policies and Procedures Select: Reference Ranges - GFR 08/31/2006 4:30 AM MOTEL OPERATOR us Jaime Haas MD CHEMISTRY ORDERABLES Final Res ult Performing Organization Address [facility] de Phone Number INTERFACE SYSTEM Refer to clinic/hospital department * (ABNORMAL) PHENYTOIN LEVEL, TOTAL (08/31/2006 4:30 AM MOTEL OPERATOR) PHENYTOIN TOTAL 20.5(H) 10.0 - 20.0 ug/mL INTERFACE SYSTEM Comment: Phenytoin Toxic Level = >30 ug/mL Phenytoin Severely Toxic Level = >40 ug/mL 08/31/2006 4:30 AM MOTEL OPERATOR Arnoldo Ybarra CHEMISTRY ORDERABLES Final Resul t Performing Organization Address [facility] de Phone Number INTERFACE SYSTEM Refer to clinic/hospital department * (ABNORMAL) POC GLUCOSE (08/31/2006 12:18 AM MOTEL OPERATOR) GLUCOSE POC 145(H) 65 - 99 mg/dL INTERFACE SYSTEM Comment: 07/31/2006 Change in reference range to correspond to Main Lab reference range. 08/31/2006 12:1 8 AM MOTEL OPERATOR Ki Saavedra MD POINT OF CARE TESTING Final Result Performing Organization Address [facility] Phone Number INTERFACE SYSTEM Refer to clinic/hospital department * (ABNORMAL) POC GLUCOSE (08/30/2006 8:30 PM MOTEL OPERATOR) GLUCOSE POC 157(H) 65 - 99 mg/dL INTERFACE SYSTEM Comment: 07/31/2006 Change in reference range to correspond to Main Lab reference range. 08/30/2006 8:30 PM MOTEL OPERATOR Ki Saavedra MD POINT OF CARE TESTING Final Result Performing Organization Address [facility] Phone Number INTERFACE SYSTEM Refer to clinic/hospital department * (ABNORMAL) POC GLUCOSE (08/30/2006 4:36 PM MOTEL OPERATOR) GLUCOSE POC 107(H) 65 - 99 mg/dL INTERFACE SYSTEM Comment: 07/31/2006 Change in reference range to correspond to Main Lab reference range. 08/30/2006 4:36 PM MOTEL OPERATOR Ki Saavedra MD POINT OF CARE TESTING Final Result Performing Organization Address [facility] Phone Number INTERFACE SYSTEM Refer to clinic/hospital department * VANCOMYCIN LEVEL TROUGH (08/30/2006 2:55 PM MOTEL OPERATOR) VANCOMYCIN, TROUGH 7.9 5.0 - 15.0 ug/mL INTERFACE SYSTEM Comment: Vancomycin Trough Toxic Level= >15.0 ug/mL 08/30/2006 2:55 PM MOTEL OPERATOR Getachew Ring MD CHEMISTRY ORDERABLES Final Result Performing Organization Address [facility] Phone Number INTERFACE SYSTEM Refer to clinic/hospital department * (ABNORMAL) POC GLUCOSE (08/30/2006 1:04 PM MOTEL OPERATOR) GLUCOSE POC 114(H) 65 - 99 mg/dL INTERFACE SYSTEM Comment: 07/31/2006 Change in reference range to correspond to Main Lab reference range. 08/30/2006 1:04 PM MOTEL OPERATOR Ki Saavedra MD POINT OF CARE TESTING Final Result Performing Organization Address [facility] Phone Number INTERFACE SYSTEM Refer to clinic/hospital department * (ABNORMAL) POC GLUCOSE (08/30/2006 8:02 AM MOTEL OPERATOR) GLUCOSE POC 117(H) 65 - 99 mg/dL INTERFACE SYSTEM Comment: 07/31/2006 Change in reference range to correspond to Main Lab reference range. 08/30/2006 8:02 AM MOTEL OPERATOR Ki Saavedra MD POINT OF CARE TESTING Final Result Performing Organization Address [facility] Phone Number INTERFACE SYSTEM Refer to clinic/hospital department * (ABNORMAL) CBC WITH DIFFERENTIAL (08/30/2006 5:00 AM MOTEL OPERATOR) NEUTROPHILS 82(H) 45 - 70 % INTERFAC E SYSTEM LYMPHOCYTES 15(L) 16 - 45 % INTERFAC E SYSTEM MONOCYTES 3 3 - 13 % INTERFACE SYSTEM EOSINOPHILS 0 0 - 7 % INTERFAC E SYSTEM BASOPHILS 0 0 - 2 % INTERFACE SYSTEM NEUTROPHIL ABSOLUTE 7.34(H) 1.90 - 7.00 K/uL INTERFACE SYSTEM LYMPHOCYTE ABSOLUTE 1.30 0.70 - 4.50 K/uL INTERFACE SYSTEM MONOCYTE ABSOLUTE 0.24 0.10 - 1.30 K/uL INTERFACE SYSTEM EOSINOPHIL ABSOLUTE 0.02 0.00 - 0.70 K/uL INTERFACE SYSTEM BASOPHILS ABSOLUTE 0.04 0.00 - 0.20 K/uL INTERFACE SYSTEM 08/30/2006 5:0 0 AM MOTEL OPERATOR Jackie Rodriguez MD HEMATOLOGY ORDERABLES Final Result INTERFACE SYSTEM Refer to clinic/hospital department * (ABNORMAL) CBC WITH DIFFERENTIAL (08/30/2006 5:00 AM MOTEL OPERATOR) WBC 8.9 4.0 - 9.8 K/uL INTERFACE SYSTEM RBC 3.67(L) 4.50 - 5.40 M/uL INTERFACE SYSTEM HEMOGLOBIN 10.9(L) 13.6 - 16.5 g/dL INTERFACE SYSTEM HEMATOCRIT 31.6(L) 40.0 - 48.0 % INTERFACE SYSTEM MCV 86.1 82.0 - 99.0 fL INTERFACE SYSTEM MCH 29.7 27.2 - 32.6 pg INTERFACE SYSTEM MCHC 34.5 31.5 - 35.5 % INTERFACE SYSTEM RDW 13.9 11.5 - 14.5 % INTERFACE SYSTEM RDW-STDEV 43.9 37.1 - 48.7 fL INTERFACE SYSTEM PLATELETS 279 140 - 350 K/uL INTERFACE SYSTEM MPV 10.4 9.3 - 12.4 fL INTERFACE SYSTEM 08/30/2006 5:00 AM MOTEL OPERATOR Jackie Rodriguez MD HEMATOLOGY ORDERABLES Final Result INTERFACE SYSTEM Refer to clinic/hospital department * PHOSPHORUS (08/30/2006 5:00 AM MOTEL OPERATOR) PHOSPHORUS 3.8 2.5 - 4.5 mg/dL INTERFACE SYSTEM 08/30/2006 5:00 AM MOTEL OPERATOR Jackie Rodriguez MD CHEMISTRY ORDERABLES Final R esult Performing Organization Address [facility] Co de Phone Number INTERFACE SYSTEM Refer to clinic/hospital department * MAGNESIUM LEVEL (08/30/2006 5:00 AM MOTEL OPERATOR) MAGNESIUM 2.1 1.5 - 2.5 mg/dL INTERFACE SYSTEM 08/30/2006 5:00 AM MOTEL OPERATOR Jackie Rodriguez MD CHEMISTRY ORDERABLES Final R esult Performing Organization Address [facility] de Phone Number INTERFACE SYSTEM Refer to clinic/hospital department * (ABNORMAL) BASIC METABOLIC PANEL (08/30/2006 5:00 AM MOTEL OPERATOR) GLUCOSE 99 65 - 99 mg/dL INTERFACE SYSTEM CREATININE 0.71 0.67 - 1.17 mg/dL INTERFACE SYSTEM Comment:Note: Effective 07/16 New Methodolgy and Reference Ranges CALCIUM 8.1(L) 8.4 - 10.2 mg/dL INTERFACE SYSTEM BUN 14 6 - 20 mg/dL INTERFACE SYSTEM SODIUM 136 135 - 145 mmol/L INTERFACE SYSTEM POTASSIUM 4.0 3.5 - 4.9 mmol/L INTERFACE SYSTEM CHLORIDE 104 96 - 108 mmol/L INTERFACE SYSTEM CO2 20(L) 22 - 30 mmol/L INTERFACE SYSTEM GFR, >60 >=60 mL/min/1. 7 sq meter INTERFACE SYSTEM GFR >60 >=60 mL/min/1. 7 sq meter INTERFACE SYSTEM Comment: Estimated GFR rate interpretative information for both Americans and non- Americans is available on the [facility] Intranet at: [email or web address] Select: Lab Policies and Procedures Select: Reference Ranges - GFR 08/30/2006 5:00 AM MOTEL OPERATOR Jackie Rodriguez MD CHEMISTRY ORDERABLES Final R esult Performing Organization Address City/[facility] Co de Phone Number INTERFACE SYSTEM Refer to clinic/hospital department * (ABNORMAL) PHENYTOIN LEVEL, TOTAL (08/30/2006 5:00 AM MOTEL OPERATOR) PHENYTOIN TOTAL 20.5(H) 10.0 - 20.0 ug/mL INTERFACE SYSTEM Comment: Phenytoin Toxic Level = >30 ug/mL Phenytoin Severely Toxic Level = >40 ug/mL 08/30/2006 5:00 AM MOTEL OPERATOR Arnoldo Ybarra CHEMISTRY ORDERABLES Final Resul t Performing Organization Address [facility] Phone Number INTERFACE SYSTEM Refer to clinic/hospital department * (ABNORMAL) POC GLUCOSE (08/30/2006 4:25 AM MOTEL OPERATOR) GLUCOSE POC 116(H) 65 - 99 mg/dL INTERFACE SYSTEM Comment: 07/31/2006 Change in reference range to correspond to Main Lab reference range. 08/30/2006 4:25 AM MOTEL OPERATOR us Ki Saavedra MD POINT OF CARE TESTING Final Result Performing Organization Address [facility] Phone Number INTERFACE SYSTEM Refer to clinic/hospital department * POC GLUCOSE (08/29/2006 11:53 PM MOTEL OPERATOR) GLUCOSE POC 94 65 - 99 mg/dL INTERFACE SYSTEM Comment: 07/31/2006 Change in reference range to correspond to Main Lab reference range. 08/29/2006 11:5 3 PM MOTEL OPERATOR us Ki Saavedra MD POINT OF CARE TESTING Final Result Performing Organization Address [facility] Phone Number INTERFACE SYSTEM Refer to clinic/hospital department * (ABNORMAL) POC GLUCOSE (08/29/2006 8:11 PM MOTEL OPERATOR) GLUCOSE POC 104(H) 65 - 99 mg/dL INTERFACE SYSTEM Comment: 07/31/2006 Change in reference range to correspond to Main Lab reference range. 08/29/2006 8:11 PM MOTEL OPERATOR us Ki Saavedra MD POINT OF CARE TESTING Final Result Performing Organization Address [facility] Phone Number INTERFACE SYSTEM Refer to clinic/hospital department * POC GLUCOSE (08/29/2006 5:39 PM MOTEL OPERATOR) GLUCOSE POC 96 65 - 99 mg/dL INTERFACE SYSTEM Comment: 07/31/2006 Change in reference range to correspond to Main Lab reference range. 08/29/2006 5:39 PM MOTEL OPERATOR us Ki Saavedra MD POINT OF CARE TESTING Final Result Performing Organization Address [facility] Phone Number INTERFACE SYSTEM Refer to clinic/hospital department * (ABNORMAL) POC GLUCOSE (08/29/2006 11:34 AM MOTEL OPERATOR) GLUCOSE POC 100(H) 65 - 99 mg/dL INTERFACE SYSTEM Comment: 07/31/2006 Change in reference range to correspond to Main Lab reference range. 08/29/2006 11:3 4 AM MOTEL OPERATOR us Ki Saavedra MD POINT OF CARE TESTING Final Result Performing Organization Address [facility] Phone Number INTERFACE SYSTEM Refer to clinic/hospital department * (ABNORMAL) POC GLUCOSE (08/29/2006 5:51 AM MOTEL OPERATOR) GLUCOSE POC 103(H) 65 - 99 mg/dL INTERFACE SYSTEM Comment: 07/31/2006 Change in reference range to correspond to Main Lab reference range. 08/29/2006 5:51 AM MOTEL OPERATOR us Ki Saavedra MD POINT OF CARE TESTING Final Result Performing Organization Address [facility] Phone Number INTERFACE SYSTEM Refer to clinic/hospital department * PHENYTOIN LEVEL, TOTAL (08/29/2006 4:50 AM MOTEL OPERATOR) PHENYTOIN TOTAL 16.2 10.0 - 20.0 ug/mL INTERFACE SYSTEM Comment: Phenytoin Toxic Level = >30 ug/mL Phenytoin Severely Toxic Level = >40 ug/mL 08/29/2006 4:50 AM MOTEL OPERATOR Arnoldo Ybarra CHEMISTRY ORDERABLES Final Resul t INTERFACE SYSTEM Refer to clinic/hospital department * CBC WITH DIFFERENTIAL (08/29/2006 4:50 AM MOTEL OPERATOR) NEUTROPHILS 62 45 - 70 % INTERFAC E SYSTEM LYMPHOCYTES 25 16 - 45 % INTERFAC E SYSTEM MONOCYTES 11 3 - 13 % INTERFACE SYSTEM EOSINOPHILS 2 0 - 7 % INTERFAC E SYSTEM BASOPHILS 0 0 - 2 % INTERFACE SYSTEM NEUTROPHIL ABSOLUTE 4.42 1.90 - 7.00 K/uL INTERFACE SYSTEM LYMPHOCYTE ABSOLUTE 1.75 0.70 - 4.50 K/uL INTERFACE SYSTEM MONOCYTE ABSOLUTE 0.78 0.10 - 1.30 K/uL INTERFACE SYSTEM EOSINOPHIL ABSOLUTE 0.14 0.00 - 0.70 K/uL INTERFACE SYSTEM BASOPHILS ABSOLUTE 0.03 0.00 - 0.20 K/uL INTERFACE SYSTEM 08/29/2006 4:50 AM MOTEL OPERATOR Getachew Ring MD HEMATOLOGY ORDERABLES Final Result INTERFACE SYSTEM Refer to clinic/hospital department * (ABNORMAL) CBC WITH DIFFERENTIAL (08/29/2006 4:50 AM MOTEL OPERATOR) WBC 7.1 4.0 - 9.8 K/uL INTERFACE SYSTEM RBC 2.91(L) 4.50 - 5.40 M/uL INTERFACE SYSTEM HEMOGLOBIN 8.8(L) 13.6 - 16.5 g/dL INTERFACE SYSTEM HEMATOCRIT 25.5(L) 40.0 - 48.0 % INTERFACE SYSTEM MCV 87.6 82.0 - 99.0 fL INTERFACE SYSTEM MCH 30.2 27.2 - 32.6 pg INTERFACE SYSTEM MCHC 34.5 31.5 - 35.5 % INTERFACE SYSTEM RDW 14.2 11.5 - 14.5 % INTERFACE SYSTEM RDW-STDEV 45.7 37.1 - 48.7 fL INTERFACE SYSTEM PLATELETS 206 140 - 350 K/uL INTERFACE SYSTEM MPV 10.3 9.3 - 12.4 fL INTERFACE SYSTEM 08/29/2006 4:50 AM MOTEL OPERATOR Getachew Ring MD HEMATOLOGY ORDERABLES Final Result Performing Organization Address City/[facility] de Phone Number INTERFACE SYSTEM Refer to clinic/hospital department * PHOSPHORUS (08/29/2006 4:50 AM MOTEL OPERATOR) PHOSPHORUS 3.2 2.5 - 4.5 mg/dL INTERFACE SYSTEM 08/29/2006 4:50 AM MOTEL OPERATOR Getachew Ring MD CHEMISTRY ORDERABLES Final Result Performing Organization Address [facility] Phone Number INTERFACE SYSTEM Refer to clinic/hospital department * MAGNESIUM LEVEL (08/29/2006 4:50 AM MOTEL OPERATOR) MAGNESIUM 1.6 1.5 - 2.5 mg/dL INTERFACE SYSTEM 08/29/2006 4:50 AM MOTEL OPERATOR Getachew Ring MD CHEMISTRY ORDERABLES Final Result Performing Organization Address [facility] Phone Number INTERFACE SYSTEM Refer to clinic/hospital department * (ABNORMAL) BASIC METABOLIC PANEL (08/29/2006 4:50 AM MOTEL OPERATOR) GLUCOSE 81 65 - 99 mg/dL INTERFACE SYSTEM CREATININE 0.72 0.67 - 1.17 mg/dL INTERFACE SYSTEM Comment:Note: Effective 07/16 New Methodolgy and Reference Ranges CALCIUM 7.4(L) 8.4 - 10.2 mg/dL INTERFACE SYSTEM BUN 10 6 - 20 mg/dL INTERFACE SYSTEM SODIUM 140 135 - 145 mmol/L INTERFACE SYSTEM POTASSIUM 3.3(L) 3.5 - 4.9 mmol/L INTERFACE SYSTEM CHLORIDE 111(H) 96 - 108 mmol/L INTERFACE SYSTEM CO2 21(L) 22 - 30 mmol/L INTERFACE SYSTEM GFR, >60 >=60 mL/min/1. 7 sq meter INTERFACE SYSTEM GFR >60 >=60 mL/min/1. 7 sq meter INTERFACE SYSTEM Comment: Estimated GFR rate interpretative information for both Americans and non- Americans is available on the [facility] Intranet at: [email or web address] Select: Lab Policies and Procedures Select: Reference Ranges - GFR 08/29/2006 4:50 AM MOTEL OPERATOR us Getachew Ring MD CHEMISTRY ORDERABLES Final Result Performing Organization Address [facility] Phone Number INTERFACE SYSTEM Refer to clinic/hospital department * (ABNORMAL) POC GLUCOSE (08/28/2006 11:38 PM MOTEL OPERATOR) GLUCOSE POC 107(H) 65 - 99 mg/dL INTERFACE SYSTEM Comment: 07/31/2006 Change in reference range to correspond to Main Lab reference range. 08/28/2006 11:3 8 PM MOTEL OPERATOR us Ki Saavedra MD POINT OF CARE TESTING Final Result Performing Organization Address [facility] Phone Number INTERFACE SYSTEM Refer to clinic/hospital department * (ABNORMAL) POC GLUCOSE (08/28/2006 5:42 PM MOTEL OPERATOR) GLUCOSE POC 105(H) 65 - 99 mg/dL INTERFACE SYSTEM Comment: 07/31/2006 Change in reference range to correspond to Main Lab reference range. 08/28/2006 5:42 PM MOTEL OPERATOR us Ki Saavedra MD POINT OF CARE TESTING Final Result Performing Organization Address [facility] Phone Number INTERFACE SYSTEM Refer to clinic/hospital department * VANCOMYCIN LEVEL TROUGH (08/28/2006 2:20 PM MOTEL OPERATOR) VANCOMYCIN, TROUGH 10.0 5.0 - 15.0 ug/mL INTERFACE SYSTEM Comment: Vancomycin Trough Toxic Level= >15.0 ug/mL 08/28/2006 2:20 PM MOTEL OPERATOR us Getachew Ring MD CHEMISTRY ORDERABLES Final Result Performing Organization Address [facility] Phone Number INTERFACE SYSTEM Refer to clinic/hospital department * (ABNORMAL) POC GLUCOSE (08/28/2006 11:27 AM MOTEL OPERATOR) GLUCOSE POC 103(H) 65 - 99 mg/dL INTERFACE SYSTEM Comment: 07/31/2006 Change in reference range to correspond to Main Lab reference range. 08/28/2006 11:2 7 AM MOTEL OPERATOR us Ki Saavedra MD POINT OF CARE TESTING Final Result Performing Organization Address [facility] Phone Number INTERFACE SYSTEM Refer to clinic/hospital department * POC GLUCOSE (08/28/2006 6:00 AM MOTEL OPERATOR) GLUCOSE POC 77 65 - 99 mg/dL INTERFACE SYSTEM Comment: 07/31/2006 Change in reference range to correspond to Main Lab reference range. 08/28/2006 6:00 AM MOTEL OPERATOR us Ki Saavedra MD POINT OF CARE TESTING Final Result Performing Organization Address [facility] Phone Number INTERFACE SYSTEM Refer to clinic/hospital department * CBC WITH DIFFERENTIAL (08/28/2006 4:15 AM MOTEL OPERATOR) NEUTROPHILS 62 45 - 70 % INTERFAC E SYSTEM LYMPHOCYTES 27 16 - 45 % INTERFAC E SYSTEM MONOCYTES 9 3 - 13 % INTERFACE SYSTEM EOSINOPHILS 2 0 - 7 % INTERFAC E SYSTEM BASOPHILS 0 0 - 2 % INTERFACE SYSTEM NEUTROPHIL ABSOLUTE 5.46 1.90 - 7.00 K/uL INTERFACE SYSTEM LYMPHOCYTE ABSOLUTE 2.39 0.70 - 4.50 K/uL INTERFACE SYSTEM MONOCYTE ABSOLUTE 0.79 0.10 - 1.30 K/uL INTERFACE SYSTEM EOSINOPHIL ABSOLUTE 0.19 0.00 - 0.70 K/uL INTERFACE SYSTEM BASOPHILS ABSOLUTE 0.03 0.00 - 0.20 K/uL INTERFACE SYSTEM 08/28/2006 4:15 AM MOTEL OPERATOR us Ki Saavedra MD HEMATOLOGY ORDERABLES Final Result Performing Organization Address [facility] Phone Number INTERFACE SYSTEM Refer to clinic/hospital department * (ABNORMAL) CBC WITH DIFFERENTIAL (08/28/2006 4:15 AM MOTEL OPERATOR) WBC 8.9 4.0 - 9.8 K/uL INTERFACE SYSTEM RBC 3.95(L) 4.50 - 5.40 M/uL INTERFACE SYSTEM HEMOGLOBIN 12.0(L) 13.6 - 16.5 g/dL INTERFACE SYSTEM HEMATOCRIT 35.0(L) 40.0 - 48.0 % INTERFACE SYSTEM MCV 88.6 82.0 - 99.0 fL INTERFACE SYSTEM MCH 30.4 27.2 - 32.6 pg INTERFACE SYSTEM MCHC 34.3 31.5 - 35.5 % INTERFACE SYSTEM RDW 14.3 11.5 - 14.5 % INTERFACE SYSTEM RDW-STDEV 46.9 37.1 - 48.7 fL INTERFACE SYSTEM PLATELETS 283 140 - 350 K/uL INTERFACE SYSTEM MPV 10.6 9.3 - 12.4 fL INTERFACE SYSTEM 08/28/2006 4:15 AM MOTEL OPERATOR us Ki Saavedra MD HEMATOLOGY ORDERABLES Final Result Performing Organization Address [facility] Phone Number INTERFACE SYSTEM Refer to clinic/hospital department * PHENYTOIN LEVEL, TOTAL (08/28/2006 4:15 AM MOTEL OPERATOR) PHENYTOIN TOTAL 12.8 10.0 - 20.0 ug/mL INTERFACE SYSTEM Comment: Phenytoin Toxic Level = >30 ug/mL Phenytoin Severely Toxic Level = >40 ug/mL 08/28/2006 4:15 AM MOTEL OPERATOR us Ki Saavedra MD CHEMISTRY ORDERABLES Final Result Performing Organization Address [facility] Phone Number INTERFACE SYSTEM Refer to clinic/hospital department * PHOSPHORUS (08/28/2006 4:15 AM MOTEL OPERATOR) PHOSPHORUS 3.8 2.5 - 4.5 mg/dL INTERFACE SYSTEM 08/28/2006 4:15 AM MOTEL OPERATOR us Ki Saavedra MD CHEMISTRY ORDERABLES Final Result Performing Organization Address [facility] Phone Number INTERFACE SYSTEM Refer to clinic/hospital department * MAGNESIUM LEVEL (08/28/2006 4:15 AM MOTEL OPERATOR) MAGNESIUM 2.0 1.5 - 2.5 mg/dL INTERFACE SYSTEM 08/28/2006 4:15 AM MOTEL OPERATOR us Ki Saavedra MD CHEMISTRY ORDERABLES Final Result Performing Organization Address City/[facility]/ZIP Co de Phone Number INTERFACE SYSTEM Refer to clinic/hospital department * (ABNORMAL) COMPREHENSIVE METABOLIC PANEL (08/28/2006 4:15 AM MOTEL OPERATOR) GLUCOSE 96 65 - 99 mg/dL INTERFACE SYSTEM CREATININE 0.78 0.67 - 1.17 mg/dL INTERFACE SYSTEM Comment:Note: Effective 07/16 New Methodology and Reference Ranges CALCIUM 7.8(L) 8.4 - 10.2 mg/dL INTERFACE SYSTEM ALKALINE PHOSPHATASE 58 40 - 129 U/L INTERFACE SYSTEM AST 48(H) 12 - 38 U/L INTERFACE SYSTEM ALT 80(H) 0 - 41 U/L INTERFACE SYSTEM TOTAL PROTEIN 6.1(L) 6.3 - 8.6 g/dL INTERFACE SYSTEM ALBUMIN 3.4 3.4 - 4.8 g/dL INTERFACE SYSTEM BILIRUBIN TOTAL 0.3 0.2 - 1.0 mg/dL INTERFACE SYSTEM BUN 18 6 - 20 mg/dL INTERFACE SYSTEM SODIUM 139 135 - 145 mmol/L INTERFACE SYSTEM POTASSIUM 4.0 3.5 - 4.9 mmol/L INTERFACE SYSTEM CHLORIDE 108 96 - 108 mmol/L INTERFACE SYSTEM CO2 25 22 - 30 mmol/L INTERFACE SYSTEM GFR, >60 >=60 mL/min/1. 7 sq meter INTERFACE SYSTEM GFR >60 >=60 mL/min/1. 7 sq meter INTERFACE SYSTEM Comment: Estimated GFR rate interpretative information for both Americans and non- Americans is available on the [facility] Intranet at: [email or web address] Select: Lab Policies and Procedures Select: Reference Ranges - GFR 08/28/2006 4:15 AM MOTEL OPERATOR us Ki Saavedra MD CHEMISTRY ORDERABLES Final Result INTERFACE SYSTEM Refer to clinic/hospital department * (ABNORMAL) POC GLUCOSE (08/28/2006 12:48 AM MOTEL OPERATOR) GLUCOSE POC 114(H) 65 - 99 mg/dL INTERFACE SYSTEM Comment: 07/31/2006 Change in reference range to correspond to Main Lab reference range. 08/28/2006 12:4 8 AM MOTEL OPERATOR us Ki Saavedra MD POINT OF CARE TESTING Final Result Performing Organization Address [facility] de Phone Number INTERFACE SYSTEM Refer to clinic/hospital department * CBC WITH DIFFERENTIAL (08/27/2006 11:25 PM MOTEL OPERATOR) NEUTROPHILS 62 45 - 70 % INTERFAC E SYSTEM LYMPHOCYTES 30 16 - 45 % INTERFAC E SYSTEM MONOCYTES 6 3 - 13 % INTERFACE SYSTEM EOSINOPHILS 2 0 - 7 % INTERFAC E SYSTEM BASOPHILS 0 0 - 2 % INTERFACE SYSTEM NEUTROPHIL ABSOLUTE 6.44 1.90 - 7.00 K/uL INTERFACE SYSTEM LYMPHOCYTE ABSOLUTE 3.10 0.70 - 4.50 K/uL INTERFACE SYSTEM MONOCYTE ABSOLUTE 0.61 0.10 - 1.30 K/uL INTERFACE SYSTEM EOSINOPHIL ABSOLUTE 0.17 0.00 - 0.70 K/uL INTERFACE SYSTEM BASOPHILS ABSOLUTE 0.04 0.00 - 0.20 K/uL INTERFACE SYSTEM 08/27/2006 11:2 5 PM MOTEL OPERATOR us Ki Saavedra MD HEMATOLOGY ORDERABLES Final Result Performing Organization Address [facility] Phone Number INTERFACE SYSTEM Refer to clinic/hospital department * (ABNORMAL) CBC WITH DIFFERENTIAL (08/27/2006 11:25 PM MOTEL OPERATOR) WBC 10.4(H) 4.0 - 9.8 K/uL INTERFACE SYSTEM RBC 3.83(L) 4.50 - 5.40 M/uL INTERFACE SYSTEM HEMOGLOBIN 11.5(L) 13.6 - 16.5 g/dL INTERFACE SYSTEM HEMATOCRIT 33.2(L) 40.0 - 48.0 % INTERFACE SYSTEM MCV 86.7 82.0 - 99.0 fL INTERFACE SYSTEM MCH 30.0 27.2 - 32.6 pg INTERFACE SYSTEM MCHC 34.6 31.5 - 35.5 % INTERFACE SYSTEM RDW 14.3 11.5 - 14.5 % INTERFACE SYSTEM RDW-STDEV 45.3 37.1 - 48.7 fL INTERFACE SYSTEM PLATELETS 300 140 - 350 K/uL INTERFACE SYSTEM MPV 10.3 9.3 - 12.4 fL INTERFACE SYSTEM 08/27/2006 11:2 5 PM MOTEL OPERATOR us Ki Saavedra MD HEMATOLOGY ORDERABLES Final Result Performing Organization Address City/[facility] Phone Number INTERFACE SYSTEM Refer to clinic/hospital department * PHOSPHORUS (08/27/2006 11:25 PM MOTEL OPERATOR) PHOSPHORUS 3.2 2.5 - 4.5 mg/dL INTERFACE SYSTEM 08/27/2006 11:2 5 PM MOTEL OPERATOR us Ki Saavedra MD CHEMISTRY ORDERABLES Final Result Performing Organization Address [facility] Phone Number INTERFACE SYSTEM Refer to clinic/hospital department * MAGNESIUM LEVEL (08/27/2006 11:25 PM MOTEL OPERATOR) MAGNESIUM 2.0 1.5 - 2.5 mg/dL INTERFACE SYSTEM 08/27/2006 11:2 5 PM MOTEL OPERATOR us Ki Saavedra MD CHEMISTRY ORDERABLES Final Result Performing Organization Address [facility] Phone Number INTERFACE SYSTEM Refer to clinic/hospital department * (ABNORMAL) COMPREHENSIVE METABOLIC PANEL (08/27/2006 11:25 PM MOTEL OPERATOR) GLUCOSE 118(H) 65 - 99 mg/dL INTERFACE SYSTEM CREATININE 0.79 0.67 - 1.17 mg/dL INTERFACE SYSTEM Comment:Note: Effective 07/16 New Methodology and Reference Ranges CALCIUM 8.0(L) 8.4 - 10.2 mg/dL INTERFACE SYSTEM Comment:Significant change f rom prior result, correlate clinically and redraw if necessary. ALKALINE PHOSPHATASE 57 40 - 129 U/L INTERFACE SYSTEM AST 42(H) 12 - 38 U/L INTERFACE SYSTEM ALT 76(H) 0 - 41 U/L INTERFACE SYSTEM TOTAL PROTEIN 6.1(L) 6.3 - 8.6 g/dL INTERFACE SYSTEM ALBUMIN 3.3(L) 3.4 - 4.8 g/dL INTERFACE SYSTEM BILIRUBIN TOTAL 0.3 0.2 - 1.0 mg/dL INTERFACE SYSTEM BUN 19 6 - 20 mg/dL INTERFACE SYSTEM SODIUM 137 135 - 145 mmol/L INTERFACE SYSTEM POTASSIUM 3.6 3.5 - 4.9 mmol/L INTERFACE SYSTEM CHLORIDE 106 96 - 108 mmol/L INTERFACE SYSTEM CO2 26 22 - 30 mmol/L INTERFACE SYSTEM GFR, >60 >=60 mL/min/1. 7 sq meter INTERFACE SYSTEM GFR >60 >=60 mL/min/1. 7 sq meter INTERFACE SYSTEM Comment: Estimated GFR rate interpretative information for both Americans and non- Americans is available on the [facility] Intranet at: [email or web address] Select: Lab Policies and Procedures Select: Reference Ranges - GFR 08/27/2006 11:2 5 PM MOTEL OPERATOR us Ki Saavedra MD CHEMISTRY ORDERABLES Final Result INTERFACE SYSTEM Refer to clinic/hospital department * (ABNORMAL) POC RT, BLOOD GASES (08/27/2006 5:39 PM MOTEL OPERATOR) PH ARTERIAL 7.45 7.35 - 7.45 INTERFACE SYSTEM PCO2 ARTERIAL 38 35 - 48 mm Hg INTERFACE SYSTEM PO2 ARTERIAL 160(H) 83 - 108 mm Hg INTERFACE SYSTEM O2 SAT EST ABG POC 99 95 - 99 % INTERFACE SYSTEM BASE EXCESS ABG 2.3 -2.0 - 3.0 mmol/L INTERFACE SYSTEM HCO3 ARTERIAL 26 22 - 26 mmol/L INTERFACE SYSTEM SODIUM POC 136 135 - 145 mmol/L INTERFACE SYSTEM POTASSIUM POC 3.3(L) 3.5 - 4.9 mmol/L INTERFACE SYSTEM CALICUM IONIZED, WHOLE BLOOD 4.57(L) 4.76 - 5.16 mg/dL INTERFACE SYSTEM HEMATOCRIT POC 33.0(L) 40.0 - 48.0 % INTERFACE SYSTEM 08/27/2006 5:39 PM MOTEL OPERATOR Ki Saavedra MD CHEMISTRY ORDERABLES Final Result Performing Organization Address [facility] Phone Number INTERFACE SYSTEM Refer to clinic/hospital department * MAGNESIUM LEVEL (08/27/2006 1:16 PM MOTEL OPERATOR) [facility] MAGNESIUM 2.3 1.5 - 2.5 mg/dL INTERFACE SYSTEM 08/27/2006 1:16 PM MOTEL OPERATOR Ash Stevens MD CHEMISTRY ORDERABLES Final Resul t Performing Organization Address [facility] Phone Number INTERFACE SYSTEM Refer to clinic/hospital department * (ABNORMAL) CBC WITH DIFFERENTIAL (08/27/2006 1:13 PM MOTEL OPERATOR) Pathologist [facility] NEUTROPHIL ABSOLUTE 14.54(H) 1.90 - 7.00 K/uL INTERFACE SYSTEM LYMPHOCYTE ABSOLUTE 3.13 0.70 - 4.50 K/uL INTERFACE SYSTEM MONOCYTE ABSOLUTE 0.74 0.10 - 1.30 K/uL INTERFACE SYSTEM EOSINOPHIL ABSOLUTE 0.00 0.00 - 0.70 K/uL INTERFACE SYSTEM BASOPHILS ABSOLUTE 0.00 0.00 - 0.20 K/uL INTERFACE SYSTEM NEUTROPHILS, SEG 79(H) 45 - 70 % INT ERFACE SYSTEM LYMPHOCYTES 17 16 - 45 % INTERFAC E SYSTEM MONOCYTES 4 3 - 13 % INTERFACE SYSTEM EOSINOPHILS 0 0 - 7 % INTERFAC E SYSTEM BASOPHILS 0 0 - 2 % INTERFACE SYSTEM PLATELET EST. Consistent w/ count Normal INTERFACE SYSTEM ANISOCYTOSIS Slight INTERFA CE SYSTEM 08/27/2006 1:13 PM MOTEL OPERATOR Ash Stevens MD HEMATOLOGY ORDERABLES Final Resu lt Performing Organization Address [facility] de Phone Number INTERFACE SYSTEM Refer to clinic/hospital department * (ABNORMAL) CBC WITH DIFFERENTIAL (08/27/2006 1:13 PM MOTEL OPERATOR) Pathologist [facility] WBC 18.4(H) 4.0 - 9.8 K/uL INTERFACE SYSTEM RBC 4.92 4.50 - 5.40 M/uL INTERFACE SYSTEM HEMOGLOBIN 15.2 13.6 - 16.5 g/dL INTERFACE SYSTEM HEMATOCRIT 43.1 40.0 - 48.0 % INTERFACE SYSTEM MCV 87.6 82.0 - 99.0 fL INTERFACE SYSTEM MCH 30.9 27.2 - 32.6 pg INTERFACE SYSTEM MCHC 35.3 31.5 - 35.5 % INTERFACE SYSTEM RDW 14.1 11.5 - 14.5 % INTERFACE SYSTEM RDW-STDEV 45.3 37.1 - 48.7 fL INTERFACE SYSTEM PLATELETS 424(H) 140 - 350 K/uL INTERFACE SYSTEM MPV 10.6 9.3 - 12.4 fL INTERFACE SYSTEM 08/27/2006 1:13 PM MOTEL OPERATOR us Ash Stevens MD HEMATOLOGY ORDERABLES Final Resu lt INTERFACE SYSTEM Refer to clinic/hospital department documented in this encounter Visit Diagnoses Diagnosis Other postoperative infection- Primary Cellulitis and abscess of neck Acute respiratory failure Other convulsions Other specified surgical operation and procedure causing abnormal patient reaction, or later complication, without mention of misadventure at time of operation Place of occurrence, residential institution Tobacco use disorder Leukocytosis, unspecified documented in this encounter Care Teams Sanitation Superintendent Relationship Specialty Start Date End Date Andrae Wu MD [address] [place] [address] PCP - General 09/29/06 05/13/10 documented as of this encounter
--- OUTSIDE RECORDS SUMMARY | 2025-06-19 14:38 | XMS_ITS | Encounter Summary ---
Author Organization [facility] Address [address] [place] [address] Care Team Providers Care High Speed Operator Name Role Phone Andrae Wu MD Primary Care Provider Encounter Details Date Type Department Care Team (Late st Contact Info) Description 09/25/2006 Outpatient Historical Division of Neurology [address] [facility] [address] [address] Evelyn Farrell MD [address] [facility] [address] [place] [id number] Social History Tobacco Use Types Packs/Day Years Used Date Smoking Tobacco: Never Assessed Sex and Gender Information Value Date Recorded Sex Assigned at Not on file Legal Sex Male 5:17 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
--- OUTSIDE RECORDS SUMMARY | 2025-06-19 14:39 | XMS_ITS | Encounter Summary ---
Author Organization [facility] Address [address] [place] [address] Care Team Providers Care Generation Engineer Name Role Phone Andrae Wu MD Primary Care Provider [phone] Encounter Details Date Type Department Care Team (Latest Contact Info) Description 10/06/2006 Outpatient Historical [facility] Rahul Ferguson MD NO ADDRESS ON FILE Other Postoperative Infection (Primary Dx) Social History Tobacco Use Types Packs/Day Years Used Date Smoking Tobacco: Never Assessed Sex and Gender Information Value Date Recorded Sex Assigned at Not on file Legal Sex Male 5:17 AM SALES INCENTIVE ANALYST Gender Identity Not on file Sexual Orientation Not on file documented as of this encounter Plan of Treatment Not on file documented as of this encounter Procedures Procedure Name Priority Date/Time Associated Diagnosis Comments VANCOMYCIN LEVEL TROUGH Routine 10/06/2006 11:07 AM SALES INCENTIVE ANALYST CBC WITH DIFFERENTIAL Routine 10/06/2006 8:30 AM SALES INCENTIVE ANALYST CBC WITH DIFFERENTIAL Routine 10/06/2006 8:30 AM SALES INCENTIVE ANALYST PHENYTOIN LEVEL, TOTAL Routine 7 8:30 AM SALES INCENTIVE ANALYST COMPREHENSIVE METABOLIC PANEL Routine 10/06/2006 8:30 AM SALES INCENTIVE ANALYST documented in this encounter Results * VANCOMYCIN LEVEL TROUGH (10/06/2006 11:07 AM SALES INCENTIVE ANALYST) VANCOMYCIN, TROUGH 14.2 5.0 - 15.0 ug/mL INTERFACE SYSTEM Comment: Vancomycin Trough Toxic Level= >15.0 ug/mL 10/06/2006 11:0 7 AM SALES INCENTIVE ANALYST Rahul Ferguson MD CHEMISTRY ORDERABLES Edite d Performing Organization Address [facility] Phone Number INTERFACE SYSTEM Refer to clinic/hospital department * CBC WITH DIFFERENTIAL (10/06/2006 8:30 AM SALES INCENTIVE ANALYST) NEUTROPHILS 52 45 - 70 % INTERFAC E SYSTEM LYMPHOCYTES 31 16 - 45 % INTERFAC E SYSTEM MONOCYTES 12 3 - 13 % INTERFACE SYSTEM EOSINOPHILS 4 0 - 7 % INTERFAC E SYSTEM BASOPHILS 1 0 - 2 % INTERFACE SYSTEM NEUTROPHIL ABSOLUTE 2.72 1.90 - 7.00 K/uL INTERFACE SYSTEM LYMPHOCYTE ABSOLUTE 1.60 0.70 - 4.50 K/uL INTERFACE SYSTEM MONOCYTE ABSOLUTE 0.61 0.10 - 1.30 K/uL INTERFACE SYSTEM EOSINOPHIL ABSOLUTE 0.20 0.00 - 0.70 K/uL INTERFACE SYSTEM BASOPHILS ABSOLUTE 0.05 0.00 - 0.20 K/uL INTERFACE SYSTEM 10/06/2006 8:30 AM SALES INCENTIVE ANALYST Rahul Ferguson MD HEMATOLOGY ORDERABLES Edit ed Performing Organization Address [facility] Phone Number INTERFACE SYSTEM Refer to clinic/hospital department * (ABNORMAL) CBC WITH DIFFERENTIAL (10/06/2006 8:30 AM SALES INCENTIVE ANALYST) WBC 5.2 4.0 - 9.8 K/uL INTERFACE SYSTEM RBC 4.07(L) 4.50 - 5.40 M/uL INTERFACE SYSTEM HEMOGLOBIN 12.5(L) 13.6 - 16.5 g/dL INTERFACE SYSTEM HEMATOCRIT 36.5(L) 40.0 - 48.0 % INTERFACE SYSTEM MCV 89.7 82.0 - 99.0 fL INTERFACE SYSTEM MCH 30.7 27.2 - 32.6 pg INTERFACE SYSTEM MCHC 34.2 31.5 - 35.5 % INTERFACE SYSTEM RDW 14.3 11.5 - 14.5 % INTERFACE SYSTEM RDW-STDEV 47.1 37.1 - 48.7 fL INTERFACE SYSTEM PLATELETS 259 140 - 350 K/uL INTERFACE SYSTEM MPV 10.9 9.3 - 12.4 fL INTERFACE SYSTEM 10/06/2006 8:30 AM SALES INCENTIVE ANALYST Rahul Ferguson MD HEMATOLOGY ORDERABLES Edit ed INTERFACE SYSTEM Refer to clinic/hospital department * (ABNORMAL) COMPREHENSIVE METABOLIC PANEL (10/06/2006 8:30 AM SALES INCENTIVE ANALYST) GLUCOSE 91 65 - 99 mg/dL INTERFACE SYSTEM CREATININE 0.7 0.7 - 1.2 mg/dL INTERFACE SYSTEM CALCIUM 9.1 8.6 - 10.2 mg/dL INTERFACE SYSTEM AST 25 12 - 38 U/L INTERFACE SYSTEM ALKALINE PHOSPHATASE 110 40 - 129 U/L INTERFACE SYSTEM BILIRUBIN TOTAL 0.2 0.2 - 1.0 mg/dL INTERFACE SYSTEM ALBUMIN 3.8 3.4 - 4.8 g/dL INTERFACE SYSTEM TOTAL PROTEIN 7.3 6.0 - 8.3 g/dL INTERFACE SYSTEM ALT 35 0 - 41 U/L INTERFACE SYSTEM BUN 12 6 - 20 mg/dL INTERFACE SYSTEM SODIUM 141 135 - 145 mmol/L INTERFACE SYSTEM POTASSIUM 4.0 3.5 - 4.9 mmol/L INTERFACE SYSTEM CHLORIDE 102 96 - 108 mmol/L INTERFACE SYSTEM CO2 32(H) 22 - 30 mmol/L INTERFACE SYSTEM GFR, >60 >=60 mL/min/1.7 sq meter INTERFACE SYSTEM GFR >60 >=60 mL/min/1.7 sq meter INTERFACE SYSTEM Comment: Estimated GFR rate interpretative information for both Americans and non- Americans is available on the [facility] Intranet at: [email or web address] Select: Lab Policies and Procedures Select: Reference Ranges - GFR 10/06/2006 8:30 AM SALES INCENTIVE ANALYST Rahul Ferguson MD CHEMISTRY ORDERABLES Edite d INTERFACE SYSTEM Refer to clinic/hospital department * (ABNORMAL) PHENYTOIN TOTAL (10/06/2006 8:30 AM SALES INCENTIVE ANALYST) PHENYTOIN TOTAL 7.7(L) 10.0 - 20.0 ug/mL INTERFACE SYSTEM Comment: Phenytoin Toxic Level = >30 ug/mL Phenytoin Severely Toxic Level = >40 ug/mL 10/06/2006 8:30 AM SALES INCENTIVE ANALYST Rahul Ferguson MD CHEMISTRY ORDERABLES Edite d INTERFACE SYSTEM Refer to clinic/hospital department documented in this encounter Visit Diagnoses Diagnosis Other postoperative infection- Primary documented in this encounter Care Teams Generation Engineer Relationship Specialty Start Date End Date Andrae Wu MD [address] [place] [id number] PCP - General 09/29/06 05/13/10 documented as of this encounter
--- OUTSIDE RECORDS SUMMARY | 2025-06-19 14:39 | XMS_ITS | Encounter Summary ---
Author Organization [email or web address] [facility] Address [address] [place] [address] Care Team Providers Care Pre K Teacher Name Role Phone Unavailable Primary Care Provider Unavailabl e Encounter Details Date Type Department Care Team (Late st Contact Info) Description 06/14/2025 External Device Data [facility] ABSTRACTION Provider, Abstract NO ADDRESS ON FILE Social History Tobacco Use Types Packs/Day Years Used Date Smoking Tobacco: Every Day Cigarettes 1 30 Smokeless Tobacco: Never Alcohol Use Standard Drinks/Week Comments Yes 0 (1 standard drink = 0.6 oz pur e alcohol) Rarely Feeling Safe Answer Date Recorded Are you in a relationship wi th someone who hurts you emotionally and/or physically? 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
--- OUTSIDE RECORDS SUMMARY | 2025-06-19 14:39 | XMS_ITS | Clinical Summary ---
Author Organization [facility] Address [address] [place] [address] Phone Care Team Providers Care Scientific Recruiter Name Role Phone Unavailable Primary Care Provider Unavailabl e Allergies No known active allergies Medications aspirin (RAYSA CHEWABLE) 81 mg Tablet, Chewable Take 1 Tablet (81 mg) by mouth daily with breakfast Restart when hematuria is better.. 1 Tablet 8 Active nitroglycerin (NITROSTAT) 0.4 mg Tablet, SublingualIndicat ions:Coronary artery disease without angina pectoris, unspecified vessel or lesion type, unspecified whether [place] or transplanted heart,ST elevation myocardial infarction involving left anterior descending (LAD) coronary artery,Stable angina Place 1 Tablet (0.4 mg) under tongue every 5 minutes as needed for Chest Pain Max 3 tabs, call if no response or SBP<100. 25 Tablet 3 9 Active metoprolol succinate (TOPROL XL) 25 mg Extended Release 24 hour tabletIndications :Hyperlipidemia LDL goal <70,Benign hypertension Take 0.5 Tablets (12.5 mg) by mouth daily. 30 Tablet 6 9 Active rosuvastatin (CRESTOR) 40 mg tabletIndications :Hyperlipidemia LDL goal <70,Benign hypertension Take 1 Tablet (40 mg) by mouth daily at bedtime. 30 Tablet 6 9 Active losartan (COZAAR) 50 mg tabletIndications :Hyperlipidemia LDL goal <70,Benign hypertension Take 1 Tablet (50 mg) by mouth daily. 30 Tablet 6 9 Active cyclobenzaprine (FLEXERIL) 10 mg tabletIndications :Neck pain Take 1 Tablet (10 mg) by mouth 2 times daily as needed for Spasm. 20 Tablet 9 Active ticagrelor (BRILINTA) 90 mg Tablet Take 1 Tablet (90 mg) by mouth 2 times daily. 60 Tablet 11 01/26/2019 10:20 AM CDT 9 Active silver sulfADIAZINE (SILVADENE) 1 % Cream Apply to affected area daily. 50 Gram 2 Active oxyCODONE-acetami nophen (PERCOCET) 5-325 mg tabletIndications :Superficial burn of right forearm, initial encounter Take 1 Tablet by mouth every 4 hours as needed for Pain, Moderate. Max Daily Amount: 6 Tablets 15 Tablet 2 Active HYDROcodone-aceta minophen (NORCO) 5-325 mg tabletIndications :Kidney stone on left side Take 1 Tablet by mouth every 4 hours as needed for Pain, Moderate. Max Daily Amount: 6 Tablets 10 Tablet 3 Active tamsulosin (Flomax) 0.4 mg capsule Take 1 Capsule (0.4 mg) by mouth daily. 20 Capsule 3 Active Active Problems Patient Care Coordination No te Formatting of this note migh t be different from the original. ED TECH DR RAS LUKE MD, FACC, [facility] Cardiology RECYCLING DIRECTOR- Christin Rodriguez Problem Noted Date Diagnosed Date Essential hypertension, benign 01/21/2019 History of PA (myocardial infarction) 01/21/2019 Acute right flank pain 10/21/2017 Obstruction of right ureter 10/21/2017 Dyslipidemia 05/15/2010 Angina pectoris with documented spasm 05/14/2010 Tobacco use disorder 05/14/2010 CKD (chronic kidney disease) stage 2, GFR 60-89 ml/min 05/14/2010 Renal calculus, right Ureterolithiasis Hematuria Resolved Problems Problem Noted Date Diagnosed Date Resolved Date Acute renal failure 10/21/2017 01/22/[address] elevation myocardial infa rction involving left anterior descending (LAD) coronary artery 01/21/2019 Encounters Date Type Department Care Team Description 06/14/2025 External Device Data STL ABSTRACTION Provider, Abstract 06/14/2025 External Device Data STL ABSTRACTION Provider, Abstract 06/14/2025 External Device Data ST[facility] ABSTRACTION Provider, Abstract 06/08/2025 12:05 AM CDT - 06/08/2025 12:06 AM CDT Emergency [facility] Emergency Department [address] [place] [address] Discharge Disposition: Left Against Medical Advice 06/07/2025 Travel 06/01/2025 1:00 PM CDT Procedure visit [facility] Neurology - [place] [address] [facility] [address] [place] [phone] Numbness and tingling in both hands (Primary Dx) 04/14/2025 2:40 PM CDT Office Visit [address] [place] [address] Dionisio Yeager MD Chronic pain of both knees (Primary Dx); Primary osteoarthritis of right knee; Primary osteoarthritis of left knee; Numbness and tingling in left hand; Tobacco use; History of PA (myocardial infarction) 04/14/2025 12:40 PM CDT Ancillary Procedure [address] [phone] Dionisio Yeager MD Pain in both knees, unspecified chronicity 04/11/2025 9:50 AM CDT - 04/11/2025 11:59 PM CDT Hospital Encounter [facility] Non-Invasive Procedure [address] [place] [phone] Mitra Carroll NP Discharge Disposition: Home or Self Care 04/01/[address] [phone] Krystle Owens PA-C General 03/30/2025 Transcribe Orders [facility] Pre-Registration [place] CALL TO MAKE APPOINTMENT ONLY [address] [place] [phone] Mitra Carroll NP Carpal tunnel syndrome, left (Primary Dx); CAD (coronary atherosclerotic disease); Atherosclerosis of leg with intermittent claudication; Acute pain of left knee from Last 3 Months Immunizations Immunization Administration Dates Next Due (ADACEL/BOOSTRIX)(10 YR UP) TDAP VACCINE, 0.5ML, IM 07/29/2022 Influenza Seasonal Unspecified Formulation IM Family History Medical History Relation Name Comments Healthy Father Healthy Mother Diabetes Neg Hx Heart Disease Neg Hx Hypertension Neg Hx Relation Name Status Comments Father Alive Mother Alive Social History Tobacco Use Types Packs/Day Years Used Date Smoking Tobacco: Every Day Cigarettes 1 30 Smokeless Tobacco: Never Tobacco Cessation:Ready to Q uit: No; Counseling Given: Yes Alcohol Use Standard Drinks/Week Comments Yes 0 (1 standard drink = 0.6 oz pur e alcohol) Rarely Feeling Safe Answer Date Recorded Are you in a relationship wi th someone who hurts you emotionally and/or physically? 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 Gender Identity Not on file Sexual Orientation Not on file Last Filed Vital Signs Vital Sign Reading Time Taken Comments Blood Pressure 138/69 06/07/2025 11:34 PM CDT Pulse 65 06/07/2025 11:34 PM CDT Temperature 36.6 C (97.8 F) 06/07/2025 11:34 PM CDT Respiratory Rate 18 06/07/2025 11:34 PM CDT Oxygen Saturation 94% 06/07/2025 11:34 PM CDT Inhaled Oxygen Concentration - - Weight 65.8 kg (145 lb) 06/07/2025 4:10 PM CDT Height 162.6 cm (5' 4 ) 06/07/2025 4:10 PM CDT Body Mass Index 24.89 06/07/2025 4:10 PM CDT Plan of Treatment Health Maintenance Due Date Last Done Comments PNEUMOCOCCAL VACCINE 50+ YEARS (1 of 2 - PCV) 10/03/18 78 COLORECTAL SCREENING 2003 Colorectal Cancer Screening 2003 FIT-DNA Q 3 years 2003 FIT/FOBT Q 1 year 2003 Flex Sig/CT Colonography Q 5 years 2003 Lung Cancer Screening 2008 ZOSTER VACCINE (1 of 2) 2008 RSV VACCINE (60+ or ) (1 - Risk 60-74 years 1-dose series) 2018 INFLUENZA VACCINE (#1) 2025 06/16/2017 DTAP/TDAP/TD VACCINES (2 - Td or Tdap) 07/29/2032 Abdominal Aortic Aneurysm (AAA) Screening Completed 10/21/2017 Medical Devices Implanted Type Area Cellar Packer Device Identifier Shelf Expiration Date Model / Serial / Lot Stent Ascerta 6fr 24cm [id number] - [id number] Implanted:Qty: 1 on 10/22/2017 by Sadi Dave MD at [facility] Stent Right: Ureter [employer]- UROLOGY/WATER CONSERVATION SPECIALIST [id number] 04/01/2019 [id number] / / [id number] Promus Premier 2.5mm X 20mm-Mid Lad-12/16/2017 Implanted: 018 by Ras Luke MD (Quantity not on file) Stent [employer] - INTERVENTIONAL [place] [id number] 02/16/2019 / / [id number] Description:MID LAD Stent-12/16/2017 Implanted: 018 by Milton Meléndez, Solid Waste Division Supervisor, DO (Quantity not on file) Stent Coronary [employer] - INTERVENTIONAL [employer] / [id number] / [id number] Description:2.50mm x 20mm GTIN [id number] Stent Synergy 3.0mm X 12mm-Mid Lad-01/25/2019 Implanted: 019 by Ras Luke MD (Quantity not on file) Stent [id number] 09/28/2020 / / [id number] Procedures Procedure Name Priority Date/Time Associated Diagnosis Comments TROPONIN BASELINE, 5TH GEN Stat 06/07/2025 5:00 PM CDT LIPASE Stat 06/07/2025 5:00 PM CDT COMPREHENSIVE METABOLIC PANEL Stat 06/07/2025 5:00 PM CDT CBC WITH DIFFERENTIAL Stat 06/07/2025 5:00 PM CDT XR CHEST PA OR AP 1 VW Stat 06/07/2025 4:25 PM CDT EKG 12-LEAD Stat 06/07/2025 4:12 PM CDT EMG WITH NERVE CONDUCTION Routine 06/01/2025 Numbness and tingling in left hand XR KNEE 4+ VW BILAT Routine 04/14/2025 1 2:44 PM CDT Pain in both knees, unspecified chronicity US ANKLE PRESSURE INDEX Routine 04/11/2025 10:20 AM CDT Carpal tunnel syndrome, left CAD (coronary atherosclerotic disease) Atherosclerosis of leg with intermittent claudication Acute pain of left knee CT ABDOMEN PELVIS WO CONTRAST Stat 10/21/2017 1:47 PM WAFER FAB TECHNICIAN from Last 3 Months or Most Recently Relevant to Health Maintenance Results * TROPONIN BASELINE, 5TH GEN (06/07/2025 5:00 PM CDT) [facility] TROPONIN T, BASELINE 5TH GEN 8 <=15 ng/L 06/07/2025 5:39 PM CDT [facility] Blood Venipuncture / Unknown 06/07/2025 5:00 PM CDT 06/07/2025 5:09 PM CDT Narrative [facility] - 06/07/2025 5:39 PM CDT Troponin Detectable but normal range. Haris CARRILLO CHEMISTRY ORDERABLES Final Result [facility] CLIA # [id number] [address] [place] [address] * (ABNORMAL) CBC WITH DIFFERENTIAL (06/07/2025 5:00 PM CDT) Pathologist [facility] WBC 9.4 4.8 - 10.8 K/uL 06/07/2025 5:22 PM CDT [facility] RBC 4.40(L) 4.60 - 6.20 M/uL 06/07/2025 5:22 PM CDT [facility] HEMOGLOBIN 13.4(L) 14.0 - 18.0 g/dL 06/07/2025 5:22 PM [facility] HEMATOCRIT 40.3(L) 41.0 - 53.0 % 06/07/2025 5:22 PM [facility] MCV 91.6 84.0 - 103.0 fL 06/07/2025 5:22 PM [facility] MCH 30.5 27.0 - 34.0 pg 06/07/2025 5:22 PM [facility] MCHC 33.3 30.0 - 35.0 g/dL 06/07/2025 5:22 PM [facility] PLATELETS 307 140 - 440 K/uL 06/07/2025 5:22 PM [facility] MPV 10.3 8.9 - 12.8 fL 06/07/2025 5:22 PM [facility] RDW 14.2 11.0 - 14.5 % 06/07/2025 5:22 PM [facility] RDW-STDEV 48.5 37.0 - 54.0 fL 06/07/2025 5:22 PM [facility] NEUTROPHILS 53 42 - 75 % 06/07/2025 5:22 PM [facility] LYMPHOCYTES 36 24 - 44 % 06/07/2025 5:22 PM [facility] [employer] [facility] MONOCYTES 8 2 - 10 % 06/07/2025 5:22 PM [facility] EOSINOPHILS 3 0 - 7 % 06/07/2025 5:22 PM [facility] BASOPHILS 1 0 - 1 % 06/07/2025 5:22 PM [facility] GRANULOC[facility]TES 0 0 - 2 % 06/07/2025 5:22 PM [facility] NEUTROPHIL ABSOLUTE 4.95 2.00 - 8.00 K/uL 06/07/2025 5:22 PM [facility] LYMPHOCYTE ABSOLUTE 3.35 1.20 - 4.00 K/uL 06/07/2025 5:22 PM CDT [facility] MONOCYTE ABSOLUTE 0.75(H) 0.10 - 0.60 K/uL 06/07/2025 5:22 PM CDT [facility] EOSINOPHIL ABSOLUTE 0.24 0.00 - 0.70 K/uL 06/07/2025 5:22 PM CDT [facility] BASOPHILS ABSOLUTE 0.07 0.00 - 0.20 K/uL 06/07/2025 5:22 PM CDT [facility] IMMATURE GRANULOCYTES ABSOLUTE 0.04 0.00 - 0.10 K/uL 06/07/2025 5:22 PM CDT [facility] SMEAR REVIEWED: NA - Not Applicable 06/07/2025 5:22 PM CDT [facility] Blood Venipuncture / Unknown 06/07/2025 5:00 PM CDT 06/07/2025 5:09 PM CDT Haris CARRILLO HEMATOLOGY ORDERABLES Final Result Performing Organization Address City/[facility]/ZIP Co de Phone Number [facility] CLIA # [id number] [address] [address] [place] [address] * LIPASE (06/07/2025 5:00 PM CDT) Pathologist [facility] LIPASE 42 13 - 60 U/L 06/07/2025 5:43 PM CDT [facility] Blood Venipuncture / Unknown 06/07/2025 5:00 PM CDT 06/07/2025 5:09 PM CDT Haris CARRILLO CHEMISTRY ORDERABLES Final Result Performing Organization Address City/[facility]/ZIP Co de Phone Number [facility] CLIA # [id number] [address] [place], [place] [address] * (ABNORMAL) COMPREHENSIVE METABOLIC PANEL (06/07/2025 5:00 PM CDT) [facility] SODIUM 139 136 - 145 mmol/L 06/07/2025 5:45 PM [facility] POTASSIUM 4.5 3.5 - 5.1 mmol/L 06/07/2025 5:45 PM [facility] CHLORIDE 106 98 - 107 mmol/L 06/07/2025 5:45 PM [facility] CO2 22 22 - 29 mmol/L 06/07/2025 5:45 PM [facility] CALCIUM 9.6 8.8 - 10.2 mg/dL 06/07/2025 5:45 PM [facility] BUN 19 8 - 23 mg/dL 06/07/2025 5:45 PM [facility] CREATININE 0.97 0.67 - 1.17 mg/dL 06/07/2025 5:45 PM [facility] GLUCOSE 102(H) 74 - 99 mg/dL 06/07/2025 5:45 PM [facility] TOTAL PROTEIN 8.1 6.4 - 8.3 g/dL 06/07/2025 5:45 PM [facility] ALBUMIN 4.7 3.5 - 5.2 g/dL 06/07/2025 5:45 PM [facility] BILIRUBIN TOTAL 0.4 0.0 - 1.0 mg/dL 06/07/2025 5:45 PM [facility] ALKALINE PHOSPHATASE 79 40 - 129 U/L 06/07/2025 5:45 PM [facility] AST 18 10 - 50 U/L 06/07/2025 5:45 PM [facility] ALT 18 <=50 U/L 06/07/2025 5:45 PM [facility] GFR >60 >=60 mL/min/1.7 3 sq meter 06/07/2025 5:45 PM [facility] Comment:eGFR calculated with 2020 CKD-EPI equation. Vegetarian diet, extremely high or low muscle mass, and may affect results. Cystatin C with Glomerular Filtration Rate is a suitable alternative for these patients. ANION GAP 11 9 - 20 mmol/L 06/07/2025 5:45 PM CDT [facility] [employer] [facility] Blood Venipuncture / Unknown 06/07/2025 5:00 PM CDT 06/07/2025 5:09 PM CDT Haris CARRILLO CHEMISTRY ORDERABLES Final Result [facility] CLIA # [id number] [address] [facility] [place] [address] * XR CHEST PA OR AP 1 VW (06/07/2025 4:25 PM CDT) Anatomical Region Laterality Modality Chest Computed Radiogr aphy 06/07/2025 4:36 PM CDT Impressions 06/07/2025 5:19 PM CDT IMPRESSION: No acute cardiopulmonary process on this single view. Narrative 06/07/2025 5:19 PM CDT XR CHEST PA OR AP 1 VW Reason For Exam: Chest Pain. Diagnosis: See Reason for Exam. COMPARISON: None FINDINGS: Cardiomediastinal silhouette is within normal limits. No focal consolidation, large pleural effusion, or pneumothorax is seen. No acute osseous abnormality is appreciated. Procedure Note Lennox Barahona MD - 06/07/2025 XR CHEST PA OR AP 1 VW Reason For Exam: Chest Pain. Diagnosis: See Reason for Exam. COMPARISON: None FINDINGS: Cardiomediastinal silhouette is within normal limits. No focal consolidation, large pleural effusion, or pneumothorax is seen. No acute osseous abnormality is appreciated. IMPRESSION: No acute cardiopulmonary process on this single view. 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: [id number] : 1960 Requested By: Order Number: [id number] Katty POMPA: Rahul White Measurements Intervals Paden Rate: 61 P: 0 [place]: 160 QRS: 58 QRSD: 88 T: 59 QT: 444 QTc: 446 Interpretive Statements Normal sinus rhythm Normal ECG Electronically Signed On 06-08-2025 6:51:23 CDT by Rahul White Procedure Note Rahul White MD - 06/08/[address] [address] Test Date: 2025-06-07 Pat Name: GINO ALVAREZ Department: 11 Room: Gender: Male Financial Service Representative: [id number] : 1960 Requested By: Order Number: [id number] Reading MD: Rahul White Measurements Intervals Paden Rate: 61 P: 0 [place]: 160 QRS: 58 QRSD: 88 T: 59 QT: 444 QTc: 446 Interpretive Statements Normal sinus rhythm Normal ECG Electronically Signed On 06-08-2025 6:51:23 CDT by Rahul White us Protocol [facility] Emergency ECG ORDERABLES Final Result Performing Organization Address City/State/[facility] Co de Phone Number INTERFACE SYSTEM Refer to clinic/hospital department * (ABNORMAL) EMG WITH NERVE CONDUCTION (06/01/2025) us Dionisio Yeager MD NEUROLOGY ORDERABLES Fin al Result * XR KNEE 4+ VW BILAT (04/14/2025 12:44 PM CDT) Anatomical Region Laterality Modality Lower Extremity Computed Radiogr aphy Narrative 04/29/2025 1:20 PM CDT 4 views of each of bilateral knees obtained today and independently interpreted. No acute osseous or articular abnormalities. Tricompartmental degenerative change of bilateral knees. This is most significant in the left knee compared to right and is most severe in the medial compartment with [id number] articulation. Right knee with near emgi-[id number] articulation of the medial compartment. Mild periarticular osteophyte formation. us Dionisio Yeager MD DIAGNOSTIC IMAGING ORDER MIGUEL Final Result * US ANKLE PRESSURE INDEX (04/11/2025 10:20 AM CDT) Anatomical Region Laterality Modality Lower Extremity Ultrasound 04/11/2025 10:0 1 AM CDT Narrative 04/11/2025 7:53 PM CDT [facility] Cardiovascular Services Noninvasive Vascular Laboratory [address] [place] [address] Noninvasive Vascular Lab LAKEISHA with PVR Arterial Physiologic Evaluation Patient: Gino Alvarez Study ID: US WILLIAM ORTEZUR Gender: Nicole : 1960 Age: 64 Room: Height: Weight: BSA: Pt status: Outpatient Study Date: 04/11/2025 Study Time: 10:01:00 AM BSA: Ordering: Mitra Carroll Interpreting:Kervin Carvalho Cost Control Analyst: Al Kirk Indications: Carpal tunnel syndrome, left [G56.02 (ICD-10-CM)]; CAD (coronary atherosclerotic disease) [I25.10 (ICD-10-CM)]; Atherosclerosis of leg with intermittent claudication [I70.219 (ICD-10-CM)]; Acute pain of left knee [M25.562 (ICD-10-CM)]. History: Risk factors: Dyslipidemia. Coronary artery disease. Summary Impression: No evidence of arterial insufficiency at rest, involving the right lower extremity and the left lower extremity. No prior study available for comparison. Study data: LAKEISHA with PVR. Ankle-brachial index and pulse volume recording. Location: Vascular laboratory. Patient status: Outpatient. Study status: Routine. Procedure: A vascular evaluation was performed. Exam quality was good. Arterial flow: - Right posterior tibial: Right posterior tibial Biphasic - Right dorsal pedal: Right dorsal pedal Biphasic - Left posterior tibial: Left posterior tibial Biphasic - Left dorsal pedal: Left dorsal pedal Triphasic Pulse volume recordings: - R ankle Mildly dampened - L ankle Mildly dampened Photoplethysmography: - R 1st toe 84mm Hg Mildly dampened TBI 0.72. - L 1st toe 77mm Hg Mildly dampened TBI 0.66. Ankle brachial indices Rt PT: 107mm Hg Rt DP: 125mm Hg Rt brachial: 116mm Hg Rt PT: 0.92 Rt DP: 1.08 Lt PT: 115mm Hg Lt DP: 118mm Hg Lt Brachial: 108mm Hg Lt PT: 0.99 Lt DP: 1.02 Brachial pressures: - Rt brachial pressure (sys): 116mm Hg - Lt brachial pressure (sys): 108mm Hg - Max brachial pressure (sys): 116mm Hg [facility] Vascular Lab is accredited with the Intersocietal Commission for the Accreditation of Vascular Laboratories (ICAVL) Prepared and Electronically Authenticated Kervin Carvalho Confirmed 04/11/2025 19:53 Procedure Note Kervin Carvalho MD - 04/11/2025 [facility] Cardiovascular Services Noninvasive Vascular Laboratory [address] [place] [address] Noninvasive Vascular Lab LAKEISHA with PVR Arterial Physiologic Evaluation Patient: Gino Alvarez Study ID: US WILLIAM THAYER Gender: Nicole : 1960 Age: 64 Room: Height: Weight: BSA: Pt status: Outpatient Study Date: 04/11/2025 Study Time: 10:01:00 AM BSA: Ordering: Mitra Carroll Interpreting:Kervin Carvalho Cost Control Analyst: Al Kirk Indications: Carpal tunnel syndrome, left [G56.02 (ICD-10-CM)]; CAD (coronary atherosclerotic disease) [I25.10 (ICD-10-CM)]; Atherosclerosisof leg with intermittent claudication [I70.219 (ICD-10-CM)]; Acute pain ofleft knee [M25.562 (ICD-10-CM)]. History: Risk factors: Dyslipidemia. Coronary artery disease. Summary Impression: No evidence of arterial insufficiency at rest, involving the right lower extremity and the left lower extremity. No prior study available for comparison. Study data: LAKEISHA with PVR. Ankle-brachial index and pulse volume recording. Location: Vascular laboratory. Patient status:Outpatient. Study status: Routine. Procedure: A vascular evaluation was performed.Exam quality was good. Arterial flow: - Right posterior tibial: Right posterior tibial Biphasic - Right dorsal pedal: Right dorsal pedal Biphasic - Left posterior tibial: Left posterior tibial Biphasic - Left dorsal pedal: Left dorsal pedal Triphasic Pulse volume recordings: - R ankle Mildly dampened - L ankle Mildly dampened Photoplethysmography: - R 1st toe 84mm Hg Mildly dampened TBI 0.72. - L 1st toe 77mm Hg Mildly dampened TBI 0.66. Ankle brachial indices Rt PT: 107mm Hg Rt DP: 125mm Hg Rt brachial:116mm Hg Rt PT: 0.92 Rt DP: 1.08 Lt PT: 115mm Hg Lt DP: 118mm Hg Lt Brachial: 108mmHg Lt PT: 0.99 Lt DP: 1.02 Brachial pressures: - Rt brachial pressure (sys): 116mm Hg - Lt brachial pressure (sys): 108mm Hg - Max brachial pressure (sys): 116mm Hg [facility] Vascular Lab is accredited with theIntersocietal Commission for the Accreditation of Vascular Laboratories (ICAVL) Prepared and Electronically Authenticated Kervin Carvalho Confirmed 04/11/2025 19:53 us Mitra Carroll RECYCLING DIRECTOR US ORDERABLES Final Res ult * CT ABDOMEN PELVIS WO CONTRAST (10/21/2017 1:47 PM WAFER FAB TECHNICIAN) Anatomical Region Laterality Modality Abdomen Computed Tomogra phy 10/21/2017 1:47 PM WAFER FAB TECHNICIAN Impressions 10/21/2017 3:03 PM WAFER FAB TECHNICIAN IMPRESSION: Obstructing 4 mm distal right ureteral calculus in the right ureterovesical junction producing mild right hydroureter and mild dilation of the right renal collecting system. There is right perinephric stranding. Nonobstructing punctate left renal calculi. In the lower pole of the left kidney there is a new exophytic round lesion measuring about 1.6 cm that may represent a cyst but is not well characterized in this exam. Ultrasound evaluation recommended. Narrative 10/21/2017 3:[address]ICIAN [address] OF THE ABDOMEN AND PELVIS WITHOUT INTRAVENOUS CONTRAST WITH RECONSTRUCTIONS DATE: 10/21/2017 1:47 PM HISTORY: Pain COMPARISON: CT abdomen and pelvis on 01/18/2009 TECHNIQUE: Axial 3.0 mm images of the abdomen and pelvis obtained without IV contrast with coronal and sagittal reconstructions.. FINDINGS: Dependent atelectasis in the lower lungs. Calcified lower lungs granulomas. ABDOMEN: There is no free intraperitoneal air. Within the limitations of a noncontrast exam, the liver, gallbladder, adrenal glands, pancreas and spleen are normal. There is no ascites or fluid collection. There is no ileus or bowel obstruction. Atherosclerotic disease in the aorta. No abdominal aortic aneurysm. There is nonspecific short segment small bowel dilation without surrounding stranding or free fluid. There is mild dilation of the right renal collecting system. There is right perinephric stranding and mild free fluid which is new since previous exam. There is a nonobstructing 2 mm right renal upper pole calculus. There is mild dilatation of the right ureter and right periureteral stranding. There is an obstructing 4 mm calculus in the distal right ureter at the ureterovesical junction. No bladder calculus is seen. Bladder is almost empty. No left ureteral calculus or left hydronephrosis seen. Left kidney is normal in size. Punctate nonobstructing left renal calculi seen. 1.6 cm left renal lower pole round hypodense lesion is new since previous examination on 01/18/2009. PELVIS: Additional findings are as described above. Prostate is not enlarged. No abnormal free fluid or fluid collection. No bowel distention. Appendix is not visualized. Postoperative changes in the left pelvis most consistent with inguinal hernia repair. Multilevel degenerative changes seen in the spine. Sclerotic focus in the right iliac bone. Procedure Note Javed Hamilton MD - 10/21/2017 CT OF THE ABDOMEN AND PELVIS WITHOUT INTRAVENOUS CONTRAST WITH RECONSTRUCTIONS DATE: 10/21/2017 1:47 PM HISTORY: Pain COMPARISON: CT abdomen and pelvis on 01/18/2009 TECHNIQUE: Axial 3.0 mm images of the abdomen and pelvis obtained without IV contrast with coronal and sagittal reconstructions.. FINDINGS: Dependent atelectasis in the lower lungs. Calcified lower lungs granulomas. ABDOMEN: There is no free intraperitoneal air. Within the limitations of a noncontrast exam, the liver, gallbladder, adrenal glands, pancreas and spleen are normal. There is no ascites or fluid collection. There is no ileus or bowel obstruction. Atherosclerotic disease in the aorta. No abdominal aortic aneurysm. There is nonspecific short segment small bowel dilation without surrounding stranding or free fluid. There is mild dilation of the right renal collecting system. There is right perinephric stranding and mild free fluid which is new since previous exam. There is a nonobstructing 2 mm right renal upper pole calculus. There is mild dilatation of the right ureter and right periureteral stranding. There is an obstructing 4 mm calculus in the distal right ureter at the ureterovesical junction. No bladder calculus is seen. Bladder is almost empty. No left ureteral calculus or left hydronephrosis seen. Left kidney is normal in size. Punctate nonobstructing left renal calculi seen. 1.6 cm left renal lower pole round hypodense lesion is new since previous examination on 01/18/2009. PELVIS: Additional findings are as described above. Prostate is not enlarged. No abnormal free fluid or fluid collection. No bowel distention. Appendix is not visualized. Postoperative changes in the left pelvis most consistent with inguinal hernia repair. Multilevel degenerative changes seen in the spine. Sclerotic focus in the right iliac bone. IMPRESSION: Obstructing 4 mm distal right ureteral calculus in the right ureterovesical junction producing mild right hydroureter and mild dilation of the right renal collecting system. There is right perinephric stranding. Nonobstructing punctate left renal calculi. In the lower pole of the left kidney there is a new exophytic round lesion measuring about 1.6 cm that may represent a cyst but is not well characterized in this exam. Ultrasound evaluation recommended. Sowmya Youngblood NP CT ORDERABLES Final Resu lt from Last 3 Months or Most Recently Relevant to Health Maintenance Insurance [employer] (INTERNAL) [facility] [employer] MEDICAID [facility] Advance Directives For more information, please contact: [phone] * Full Code (Latest Code Status on File) Date Activated Date Inactivated Comments 01/25/2019 6:11 PM 01/26/2019 1:05 PM * Full Code Date Activated Date Inactivated Comments 12/16/2017 3:15 PM 12/17/2017 2:38 PM * Full Code Date Activated Date Inactivated Comments 12/16/2017 11:29 AM 12/16/2017 3:15 PM * Full Code Date Activated Date Inactivated Comments 12/12/2017 8:38 PM 12/13/2017 3:33 PM * Full Code Date Activated Date Inactivated Comments 12/12/2017 7:57 PM 12/12/2017 8:38 PM
--- OUTSIDE RECORDS SUMMARY | 2025-06-19 14:39 | XMS_ITS | Encounter Summary ---
Author Organization [facility] [facility] Address 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
--- OUTSIDE RECORDS SUMMARY | 2025-06-19 14:40 | XMS_ITS | Encounter Summary ---
Author Organization [facility] Address 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
--- NOTE | 2025-06-19 14:42 | XRR_ITS ---
PROCEDURE INFORMATION: Exam: XR Left Knee Exam date and time: 06/19/2025 2:54 PM Age: 64 years old Clinical indication: Swelling or effusion of joint; Prior surgery; Surgery date: 3-7 days post-operative; Surgery type: Lt knee replacement; Additional info: Lt knee pain/swelling/redness post op replacement x 5 days ago TECHNIQUE: Imaging protocol: Radiologic exam of the left knee. Views: 1 or 2 views. COMPARISON: CR XR knee LT -2V [id number] 06/15/2025 9:11 AM FINDINGS: Bones/joints: A knee prosthesis is well seated and well aligned. No fracture noted. Soft tissue air is noted. Soft tissues: Skin geovany are noted. Soft tissue swelling noted. XR/XR knee LT -2V [id number] IMPRESSION: Intact postoperative knee prosthesis
--- NOTE | 2025-06-19 15:44 | W.ED.EXTPRO ---
HPI - Extremity Problem General: Chief complaint: Extremity Problem,Nontraumatic Stated complaint: L knee post op, swelling and fever Time Seen by Provider: 06/19/25 14:42 History of Present Illness: Patient is 64-year-old gentleman status post TKA with discharge on 06/16 that presents to the emergency room due to blistering on the left knee that recently was replaced, and warmth. He has not had any systemic fevers. No nausea, vomiting. Pain is waxing and waning and controlled. No shortness of breath. No additional swelling throughout the leg. Associated symptoms: Deny chest pain or fever(s) Related Data Home Medications ?Medication ?Instructions ?Recorded ?Confirmed sildenafil 100 mg tablet 100 mg PO DAILY PRN .ed 04/16/24 06/19/25 propranolol 120 mg capsule,24 120 mg PO DAILY 06/14/25 06/19/25 hr,extended release Previous Rx's ?Medication ?Instructions ?Recorded aspirin 325 mg tablet 325 mg PO DAILY #30 tabs 06/16/25 hydrocodone 7.5 mg-acetaminophen 1 tab PO Q6H PRN pain #30 tabs 06/16/25 325 mg tablet doxycycline hyclate 100 mg capsule 100 mg PO BID 10 days #20 caps 06/19/25 Allergies Allergy/AdvReac Type Severity Reaction Status Date / Time No Known Allergies Allergy Verified 05/31/25 10:45 Review of Systems Const: Denies: fever(s) or chills Card: Denies: chest pain or dyspnea on exertion Resp: Denies: dyspnea, productive cough or wheezing GI: Denies: abdominal pain, nausea or vomiting Musc: Reports: joint pain, joint swelling and limited range of motion Skin/Breast: Reports: new lesions; Denies: changes in skin color or dry skin Neuro: Denies: numbness in extremities or weakness in extremities Psych: Denies: anxiety Virgilio/Lymph: Denies: easy bruising or easy bleeding [facility] PFSH: Social History Smoking and tobacco/nicotine status: current every day tobacco/nicotine user Physical Exam Const: COMMON NORMALS: no acute distress, average body habitus, patient oriented x3, no limitations, healthy appearing, alert and well nourished HENMT: COMMON NORMALS: normocephalic, atraumatic and hearing grossly normal bilaterally HEAD & SCALP: normocephalic and atraumatic Neck/C-Spine: COMMON NORMALS: full ROM and no lymphadenopathy Lymph: LYMPHATIC: no lymphadenopathy noted Chest: COMMONS NORMALS: normal inspection of the chest and normal palpation of entire chest wall Resp: COMMON NORMALS: normal respiratory effort, No retractions and clear to auscultation bilaterally AUSCULTATION: clear to auscultation bilaterally Cardio: COMMON NORMALS: regular rate and regular rhythm RATE: regular rate RHYTHM: regular rhythm GI: COMMON NORMALS: Normal to inspection, nondistended, normoactive bowel sounds present, Soft to palpation, non-tender and No hepatosplenomegaly present PALPATION: Yes Soft to palpation and Yes No hepatosplenomegaly present : COMMON NORMALS: Yes no CVA tenderness BLADDER/KIDNEY EXAM: Yes no CVA tenderness Back/Pelvis: COMMON NORMALS: no CVA tenderness Extremity: LEFT LOWER EXTREMITY: Yes knee joint Left knee: Yes inspection (Blister distal to the knee along the medial surgical dressing site, 5.5 cm ), Yes palpation (Mild warmth on knee), Yes ROM ( decreased due to recent surgery, no other concerns) and Yes neurovascular exam (Intact, sensation intact) Neuro: COMMON NORMALS: patient oriented x3 SENSORIUM/ORIENTATION: Yes alert Psych: COMMON NORMALS: mental status grossly normal, Normal thought process present and cooperative THOUGHT PROCESS: Normal thought process present Skin: SKIN IMAGES (MALE):  1. blister Course Vital Signs: Vital signs: Vital Signs Temperature 98.2 F 06/19/25 14:33 Pulse Rate 76 06/19/25 14:33 Respiratory Rate 16 06/19/25 14:33 Blood Pressure 121/67 06/19/25 14:33 Pulse Oximetry 96 06/19/25 14:33 Oxygen Delivery Me thod Room Air 06/19/25 14:33 MDM - Extremity (Nontraumatic) Medical Decision Making Patient is a 64-year-old gentleman status post left TKA, discharged 06/16. He started having increasing redness, warmth, and blister to the medial distal knee. This is approximately nursing home down lower extremity. He has minimal amount of warmth, and I do not appreciate edema. Given these thoughts, I will place him on doxycycline, and have him call his orthopedist in the a.m. to be seen, for any possible other concerns. The blister was left intact, I do suspect noninfectious in nature, however will cover for MRSA, MSSA, where typically I would start with cephalexin. This does not appear to be associated with DVT, or does not have the appearance of a more swollen leg that would render an ultrasound. Medical Records I reviewed the patient's medical records. XR interpretation done by ED provider, pending radiology final review Discharge Plan Discharge Patient Disposition: Home Clinical Impression: Blister (nonthermal), left knee, initial encounter Condition: Stable Prescriptions: New doxycycline hyclate 100 mg capsule 100 mg PO BID 10 Days Qty: 20 0RF No Action sildenafil 100 mg tablet 100 mg PO DAILY PRN (Reason: .ed) propranolol 120 mg capsule,extended release 24 hr 120 mg PO DAILY hydrocodone-acetaminophen 7.5-325 mg tablet 1 tab PO Q6H PRN (Reason: pain) Qty: 30 0RF aspirin 325 mg tablet 325 mg PO DAILY Qty: 30 0RF Discharge Orders: Discharge ED (Routine); Ordered 06/19/25 Ordered By: Ambar Jj Referrals: Danny Ramirez MD [Primary Care Provider, Family Practice] Ilir Majano MD [Physician, Orthopedics] - 1-3 days Referral Note: warm left knee with blister Discharge Diet: Usual diet Discharge Activity: Resume usual activity Patient Instructions: Javon (ED), Patient Portal & Alfredo Instructions Activity Restrictions/Additional Instructions: - Call Dr. Majano's office in the morning to schedule a follow-up. - Obtain antibiotics from the pharmacy, use as directed -You can further discuss gabapentin, with your hydrocodone with Dr. Majano. 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
== END 2025-06-19 15:56 | disposition home or self-care (01) ==
PROVIDERS: Emergency Provider Physician Assistant; PCP Family Medicine
DX: S80.222A Blister (nonthermal), left knee, initial encounter (principal); Z98.890 Other specified postprocedural states; Z96.652 Presence of left artificial knee joint; Z79.82 Long term (current) use of aspirin; Z72.0 Tobacco use; X58.XXXA Exposure to other specified factors, initial encounter
CPT/HCPCS: 73560; 99283; J9999

== ENCOUNTER → 2025-06-27 15:58 | Outpatient (BNVA) | payer MEDICARE, MEDICAID, SELFPAY | PROVIDERS: PCP Family Medicine; Visit Provider Orthopaedic Surgery | DX: Z96.652 Presence of left artificial knee joint (principal) | CPT/HCPCS: 73560; 73565; 99024 ==

== ENCOUNTER → 2025-07-07 09:00 | Outpatient (BNVA) | payer MEDICARE, SELFPAY | PROVIDERS: PCP Family Medicine; Visit Provider Orthopaedic Surgery | DX: Z96.652 Presence of left artificial knee joint (principal) | CPT/HCPCS: 99024 ==

== ENCOUNTER → 2025-09-02 08:22 | Outpatient (BNVA) | payer MEDICARE, SELFPAY | PROVIDERS: PCP Family Medicine; Visit Provider Orthopaedic Surgery | DX: Z96.652 Presence of left artificial knee joint (principal) | CPT/HCPCS: 73560; 73565; 99024 ==